=== PATIENT | male | born 1945 | race Caucasian/White ===

== ENCOUNTER 2022-01-03 04:57 | Emergency (ER) | payer MEDICARE, SELFPAY ==
[2022-01-03 05:06] VITALS: BP 183/88; PULSE 51; RESP 20; TEMP 36.6; O2SAT 98; BMI 29.5
--- NOTE | 2022-01-03 05:27 | CRLHL7_ITS ---
For Patients: As a result of the 21st Century Cures Act, medical imaging exams and procedure reports are released immediately into your electronic medical record. You may view this report before your referring provider. If you have questions, please contact your health care provider. INDICATION: Severe abdominal pain COMPARISON: None TECHNIQUE: CT examination of the abdomen and pelvis was performed following the uneventful intravenous administration of 112 cc of Isovue 370. Thin section axial images were obtained from the lung bases through the pubic symphysis. Oral contrast was not administered. Please note that all CT scans at this facility use dose modulation, iterative reconstruction, and/or weight-based dosing when appropriate to reduce radiation dose to as low as reasonably achievable. FINDINGS: LUNG BASES: The lung bases as visualized appear normal.The heart size is normal at the lung bases. Small hiatal hernia LIVER/BILIARY SYSTEM:The liver is normal in size and configuration. There is no focal mass and there is no intra- or extra hepatic biliary ductal dilatation.The gall bladder appears normal. Hepatic steatosis. ADRENALS: Normal KIDNEYS, URETERS and BLADDER:The kidneys are normal in size. There are no intrarenal calculi. Right hydro nephrosis and right hydroureter is noted. The pelvis is poorly evaluated due to dense streak artifact from right hip arthroplasty. However, a faint 2 millimeter calcification is noted on series 3, image 132 presumably within the distal right ureter about 1.5 centimeters from the ureterovesical junction. SPLEEN:There are granulomatous calcifications in the spleen. PANCREAS: Appears normal. RETROPERITONEUM and MESENTERY: There is no mass, adenopathy or aortic aneurysm. Atherosclerotic vascular calcifications GASTROINTESTINAL SYSTEM: There is no evidence of diverticulitis, colitis, mechanical obstruction, or appendicitis. The small bowel as visualized appears normal.Diverticulosis PELVIS: Poorly seen due to streak artifact from a right hip arthroplasty. Prostate is enlarged. OSSEOUS STRUCTURES and ABDOMINAL WALL: There is an age-appropriate appearance of the osseous structures.No significant abdominal wall defect. OTHER: No free fluid or free air. IMPRESSION: 1. Right hydronephrosis and right hydroureter. The distal right ureter is poorly seen due to streak artifact from right hip arthroplasty. However, there are findings suggesting a 2 millimeters stone in the distal right ureter about 1.5 centimeters from the ureterovesical junction. No intrarenal calculi. 2. Other incidental nonacute appearing findings as above. Please note that all CT scans at this facility use dose modulation, iterative reconstruction, and/or weight-based dosing when appropriate to reduce radiation dose to as low as reasonably achievable. Dictated by Jayden Griffith MD @ 01/03/2022 6:59:15 AM (Electronically Signed)
--- NOTE | 2022-01-03 05:30 | ED_ITS ---
HPI - Abdominal Pain General Chief Complaint: Abdominal Pain Stated Complaint: severe stomach pain Time Seen by Provider: 01/03/22 05:14 Source: patient and family Mode of arrival: ambulatory Limitations: no limitations History of Present Illness HPI narrative: 76-year-old man with remote history of a prior duodenal ulcer presents to the emergency department with severe onset abdominal pain at 10:00 p.m. which is approximately 7+ hours prior to arrival. Pain initially achy, dull and constant. Initially it was located in the periumbilical region per his description now it is in mostly the upper abdomen, radiating throughout the entire abdomen, not as focal. It is accompanied by nausea. Patient had a feeling that he could feel better if he vomited and had a few episodes of somewhat self induced retching but this did not improve his symptoms and he was not able to actually vomit. He has had about 3-4 bowel movements since the pain started all of which were formed and did not improve his symptoms. No blood in his stools. He has not had a recent endoscopy. Reports that he had 1 many years ago and was diagnosed with the ulcer he believes this was at [facility] any thinks was probably 40 years ago. He currently takes omeprazole and denies any complications with this. He believes his last screening colonoscopy was about a year ago and states that that would have been at our facility. Denies any s ignificant history of alcoholism or unusual ingestion. No trauma. No prior history of similar pain. He did not try any home interventions prior to coming to the emergency department as far as medications. Past medical history notable for prior stroke, depression, prior ulcer. Home medications are Plavix 75 mg once daily omeprazole 20 daily rosuvastatin 40 daily sertraline 100 daily. Denies any drug allergies. Socially, he reports that he is a nonsmoker, no heavy alcohol use. No pertinent travel. Family history reviewed from old EMR record and does not seem pertinent for GI cancers or gallbladder disease. Other than GI symptoms, ROS is negative times 12 systems. Related Data Home Medications Medication Instructions Recorded Confirmed clopidogrel 75 mg tablet 75 mg PO 11/16/21 12/21/21 omeprazole 20 mg capsule,delayed 20 mg PO 11/16/21 12/21/21 release rosuvastatin 40 mg tablet 40 mg PO 11/16/21 12/21/21 sertraline 100 mg tablet 100 mg PO 11/16/21 12/21/21 multivitamin 1 tab PO QAM 12/21/21 12/21/21 omega-3 fatty acids 1,000 mg 1,000 mg PO QDAY 12/21/21 12/21/21 capsule tadalafil 5 mg tablet 5 mg PO .As Needed PRN 12/21/21 12/21/21 Previous Rx's Medication Instructions Recorded ketorolac 10 mg tablet 10 mg PO TID PRN pain 5 days #15 01/03/22 tabs tamsulosin 0.4 mg capsule (Flomax) 0.4 mg PO DAILY #5 caps 01/03/22 Allergies Allergy/AdvReac Type Severity Reaction Status Date / Time No Known Drug Allergies Allergy Verified 12/21/21 10:32 [facility] Medical History History of duodenal ulcer (1979) History of embolic stroke (2017) Surgical History History of carotid endarterectomy (05/14/17) History of tonsillectomy History of total hip replacement (2016) Social History Smoking Status: Never smoker How often do you have a drink containing alcohol: monthly or less How many standard drinks containing alcohol do you have on a typical day: 1 or 2 AUDIT-C Alcohol total score: 1 Non-prescribed substance use: denies use Exam Const: Vital Signs, click to edit/add: Vital Signs - 24 hr 01/03/22 05:06 Temperature 97.9 F Pulse Rate [Left P ulse Oximeter] 51 L Respiratory Rate 20 Blood Pressure [Le ft Upper Arm] 183/88 H Pulse Oximetry 98 Oxygen Delivery Me thod Room Air Common normals: no apparent distress General appearance: cooperative and well kempt HENMT: Common normals: normocephalic Head and scalp: normocephalic Mouth: oral and palatal mucosa normal Throat: posterior oropharynx normal Eye: Common normals: conjunctivae normal and no scleral icterus General eye: normal appearance of both eyes Conjunctiva: conjunctiva(e) normal Neck & C-Spine: Common normals: full ROM and no lymphadenopathy Resp: Common normals: normal respiratory effort, no use of accessory muscles and clear to auscultation bilaterally Effort & inspection: able to speak in complete sentences Auscultation: clear to auscultation bilaterally Cardio: Common normals: regular rate, regular rhythm, S1 normal heart sound, S2 normal heart sound, no murmurs and peripheral pulses 2+ throughout Rate: regular rate Rhythm: regular rhythm Heart sounds: S1 normal and S2 normal Peripheral pulses: pulses 2+ throughout GI: Common normals: no hepatosplenomegaly and no masses Auscultation: normoactive bowel sounds Palpation: no hepatosplenomegaly Other: Diffusely tender throughout the abdomen but there does seem to be an element of guarding along the right mid abdomen. No mass. : Common normals: no CVA tenderness Bladder/kidney exam: no CVA tenderness Back & Pelvis: Common normals: no CVA tenderness Extremity: Common normals: normal to inspection, normal capillary refill and no pedal edema Neuro: Common normals: moves all extremities and no focal motor deficits Speech: speech normal Motor exam: no tremor noted and no movement abnormalities noted Psych: Appearance: well kempt Activity/motor behavior: appropriate eye contact Mood and affect: euthymic mood Memory/cognition: memory grossly intact Insight: insight good Judgement: judgment good Skin: Common normals: no rashes or lesions noted General skin exam: no rashes or lesions noted Course Vital Signs Vital signs: Initial Vital Signs Temperature 97.9 F 01/03/22 05:06 Temperature Source Temporal Artery Scan 01/03/22 05:06 Pulse Rate 51 L 01/03/22 05:06 Pulse Strength 0+ Absent 01/03/22 05:06 Respiratory Rate 20 01/03/22 05:06 Blood Pressure 183/88 H 01/03/22 05:06 Blood Pressure Mean 119 01/03/22 05:06 Blood Pressure Position Sitting 01/03/22 05:06 Pulse Oximetry 98 01/03/22 05:06 Oxygen Delivery Method 01/03/22 05:06 Vital Signs Temperature 97.9 F 01/03/22 05:06 Pulse Rate 51 L 01/03/22 05:06 Respiratory Rate 20 01/03/22 05:06 Blood Pressure 183/88 H 01/03/22 05:06 Pulse Oximetry 98 01/03/22 05:06 Oxygen Delivery Method 01/03/22 05:06 Temperature 97.9 F 01/03/22 05:06 Pulse Rate 51 L 01/03/22 05:06 Respiratory Rate 20 01/03/22 05:06 Blood Pressure 183/88 H 01/03/22 05:06 Pulse Oximetry 98 01/03/22 05:06 Oxygen Delivery Method 01/03/22 05:06 MDM - Abdominal Pain MDM Narrative Medical decision making narrative: Patient does seem to have findings consistent with some degree of peritonitis. Biggest suspicion is for duodenal ulcer due to prior history of ulcer and use of Plavix. Patient will have an IV placed. He will receive 4 mg of morphine, 4 of Zofran and 40 of Protonix. Blood work to look for any signs of gallbladder disease, pancreatitis, infection, inflammatory markers and cardiac disease. CT scan of the abdomen and pelvis recommended. Await findings. Update 7:00 a.m. laboratory studies showed very minimal elevation in liver enzymes, not be clinically significant. CRP normal, no significant leukocytosis. Kidney function electrolytes look great. No signs of cardiac disease. His CT scan per my interpretation is notable for right-sided hydronephrosis and hydroureter. Unfortunately do lose the ureter close to the bladder because of scatter affect from the right hip arthroplasty. But I do see a nearby calcification that looks 2-3 mm in size near the bladder which I suspect is a distal ureteral stone. The radiologist has the same interpretation. This combined with the fact that he has 2+ blood in his urine without any symptoms of infection is suspicious. Discussed the findings with patient and his . He has had kidney stones before and he thinks that this does sound consistent with what is going on. He vomited x1 in the ED and is now actually pain-free. Will be given a single dose of Flomax, 15 mg of IV Toradol and we discussed plan of care. Please see discharge instructions, all questions answered Differential Diagnosis Differential diagnosis: Likely abdominal pain (Duodenal ulcer), acute appendicitis, constipation, diverticulitis, gastroenteritis, pancreatitis and small bowel obstruction Lab Data Labs: Lab Results 01/03/22 01/03/22 01/03/22 Range/Units 05:27 05:27 05:27 WBC 9.58 (4.50-11.00) K/uL RBC 4.81 (4.30-5.90) m/uL Hgb 14.1 (13.5-17.5) gm/dL Hct 42.3 (37.0-53.0) % MCV 88 (80-100) fL MCH 29 (26-34) pg MCHC 33 (32-36) gm/dL RDW Coeff of Yudi 13.5 (11.5-15.5) % Plt Count 158 (140-440) K/uL Neut % (Auto) 87.3 H (42.0-72.0) % Lymph % (Auto) 10.0 L (20-44) % [place] % (Auto) 2.5 (0.0-11.0) % Eos % (Auto) 0.1 (0.0-7.0) % Baso % (Auto) 0.0 (0.0-3.0) % Neut # (Auto) 8.40 H (1.7-7.0) K/uL Lymph # (Auto) 1.00 (0.90-2.90) K/uL [place] # (Auto) 0.20 (0.00-0.90) K/UL Eos # (Auto) 0.01 (0.00-0.50) K/uL Baso # (Auto) 0.00 (0.00-0.30) K/uL Abs Immat Gran (auto) 0.01 (0.00-0.30) K/uL Imm/Tot Granulo (auto) 0.1 % Sodium 143 (135-149) mmol/L Potassium 4.3 (3.6-5.1) mmol/L Chloride 108 (96-114) mmol/L Carbon Dioxide 25 (20-32) mmol/L BUN 23 (7-30) mg/dL Creatinine 1.0 (0.5-1.5) mg/dL Estimated Creat Clear 74.21 Estimated GFR 78 ml/min Glucose 164 H (60-115) mg/dL Calcium 9.7 (8.4-10.6) mg/dL Total Bilirubin 0.6 (0.1-1.5) mg/dL AST 51 H (12-35) U/L ALT 74 H (4-50) U/L Alkaline Phosphatase 123 (40-150) U/L C-Reactive Protein 1.0 (0.5-1.0) mg/dL Total Protein 7.6 (6.0-8.3) g/dL Albumin 4.7 (3.3-5.0) g/dL Lipase 147 (23-300) U/L Urine Color (Yellow) Urine Appearance (Clear) Urine pH (5.0-8.5) Ur Specific [place] (1.000-1.030) Urine Protein (Negative) Urine Glucose (UA) (Negative) Urine Ketones (Negative) Urine Blood (Negative) Urine Nitrite (Negative) Urine Bilirubin (Negative) Urine Urobilinogen (0.2-1.0) Ur Leukocyte Esterase (Negative) Urine RBC (0-2) Urine WBC (0-5) Ur Squamous Epith Cells (None-Few) Urine Bacteria (None) POC Troponin I 0.00 L (0.01-0.04) ng/ml 01/03/22 Range/Units 06:11 WBC (4.50-11.00) K/uL RBC (4.30-5.90) m/uL Hgb (13.5-17.5) gm/dL Hct (37.0-53.0) % MCV (80-100) fL MCH (26-34) pg MCHC (32-36) gm/dL RDW Coeff of Yudi (11.5-15.5) % Plt Count (140-440) K/uL Neut % (Auto) (42.0-72.0) % Lymph % (Auto) (20-44) % [place] % (Auto) (0.0-11.0) % Eos % (Auto) (0.0-7.0) % Baso % (Auto) (0.0-3.0) % Neut # (Auto) (1.7-7.0) K/uL Lymph # (Auto) (0.90-2.90) K/uL [place] # (Auto) (0.00-0.90) K/UL Eos # (Auto) (0.00-0.50) K/uL Baso # (Auto) (0.00-0.30) K/uL Abs Immat Gran (auto) (0.00-0.30) K/uL Imm/Tot Granulo (auto) % Sodium (135-149) mmol/L Potassium (3.6-5.1) mmol/L Chloride (96-114) mmol/L Carbon Dioxide (20-32) mmol/L BUN (7-30) mg/dL Creatinine (0.5-1.5) mg/dL Estimated Creat Clear Estimated GFR ml/min Glucose (60-115) mg/dL Calcium (8.4-10.6) mg/dL Total Bilirubin (0.1-1.5) mg/dL AST (12-35) U/L ALT (4-50) U/L Alkaline Phosphatase (40-150) U/L C-Reactive Protein (0.5-1.0) mg/dL Total Protein (6.0-8.3) g/dL Albumin (3.3-5.0) g/dL Lipase (23-300) U/L Urine Color Yellow (Yellow) Urine Appearance Clear (Clear) Urine pH 7.0 (5.0-8.5) Ur Specific [place] 1.020 (1.000-1.030) Urine Protein Negative (Negative) Urine Glucose (UA) Negative (Negative) Urine Ketones Negative (Negative) Urine Blood 2+ A (Negative) Urine Nitrite Negative (Negative) Urine Bilirubin Negative (Negative) Urine Urobilinogen 0.2 (0.2-1.0) Ur Leukocyte Esterase Negative (Negative) Urine RBC 2-5 A (0-2) Urine WBC 0-2 (0-5) Ur Squamous Epith Cells Few (None-Few) Urine Bacteria None (None) POC Troponin I (0.01-0.04) ng/ml Discharge Plan Discharge Clinical Impression: Calculus of distal right ureter Patient Disposition: Home w/ Parent or Adult Condition: Improved Instructions: Ureteral Stones (ED) Additional Instructions: You have a 2 mm kidney stone near the end of the right ureter, near the emptying point into the bladder. This should pass without complication and is not likely to need any surgical intervention. There are no signs of infection associated with this. The remainder of your blood work and workup is normal. As we d iscussed, I would like to start you on a medication called Flomax for 5 days. This will help dilate open the ureter to allow the stone to pass more easily and will also help reduce that spasm pain. Your homework is to drink lots of fluids to help flush the stone through. I will give you prescription for some Toradol pills. This is a medication you can use for up to 5 days that will help with t hat spasm pain. It is also okay to use Tylenol. The stone tends to only hurt when it is moving, so it may come and go for a few days. It can take a few weeks for 1 this size to pass but it should not require any other intervention. As we discussed, he start running high fevers and have symptoms of infection, call your physician. If you have severe symptoms of infection, weakness, worry for systemic infection, come back to the emergency room. Activity Level: No Restrictions Discharge Diet: Regular Prescriptions: New tamsulosin [Flomax] 0.4 mg capsule 0.4 mg PO DAILY Qty: 5 0RF ketorolac 10 mg tablet 10 mg PO TID PRN (Reason: pain) 5 Days Qty: 15 0RF No Action rosuvastatin 40 mg tablet 40 mg PO omeprazole 20 mg capsule,delayed release(DR/EC) 20 mg PO clopidogrel 75 mg tablet 75 mg PO sertraline 100 mg tablet 100 mg PO multivitamin Tablet 1 tab PO QAM tadalafil 5 mg tablet 5 mg PO .As Needed PRN Rx Instructions: TAKE ONE TAB 30 MIN TO 36 HRS PRIOR TO INTERCOURSE omega-3 fatty acids 1,000 mg capsule 1,000 mg PO QDAY Follow Up/Referrals: Provider,Not a Local [Primary Care Provider] - Stand Alone Forms: Tiny Pictures Info Instructions
[2022-01-03 05:45] LABS: Eosinophils Absolute Auto 0.01 K/uL (0.00-0.50); Eosinophils Percent Auto 0.1 % (0.0-7.0); Hematocrit 42.3 % (37.0-53.0); Hemoglobin* 14.1 gm/dL (13.5-17.5); Immature Granulocytes Abs Auto 0.01 K/uL (0.00-0.30); Immature Granulocytes Pct Auto 0.1 %; Mean Corpuscular HGB Conc 33 gm/dL (32-36); Mean Corpuscular Hemoglobin 29 pg (26-34); Mean Corpuscular Volume 88 fL (80-100); Monocytes Percent Auto 2.5 % (0.0-11.0); Neutrophils Percent Auto 87.3 % (42.0-72.0); Platelet Count* 158 K/uL (140-440); RDW Coefficient of Variation % 13.5 % (11.5-15.5); Red Blood Count 4.81 m/uL (4.30-5.90); White Blood Count* 9.58 K/uL (4.50-11.00)
[2022-01-03] MEDS: MORPHINE 4 MG/ML INJ IVP (05:45)
[2022-01-03] MEDS: ONDANSETRON 2 MG/ML inj 4 MG IVP (05:45)
[2022-01-03] MEDS: PANTOPRAZOLE SODIUM 40 MG INJ IVP (05:45)
[2022-01-03 05:49] LABS: Slide Review Reflex No
[2022-01-03 06:00] LABS: Chloride* 108 mmol/L (96-114)
[2022-01-03 06:01] LABS: Albumin* 4.7 g/dL (3.3-5.0); Potassium* 4.3 mmol/L (3.6-5.1); Sodium* 143 mmol/L (135-149)
[2022-01-03 06:03] LABS: Est. Creatinine Clearance* 74.21; Estimated Glomerular Filt Rate 78 ml/min
[2022-01-03 06:04] LABS: Alanine Aminotransferase* 74 U/L (4-50); Alkaline Phosphatase* 123 U/L (40-150); Bilirubin Total* 0.6 mg/dL (0.1-1.5); Blood Urea Nitrogen* 23 mg/dL (7-30); Calcium* 9.7 mg/dL (8.4-10.6); Carbon Dioxide* 25 mmol/L (20-32); Glucose* 164 mg/dL (60-115); Lipase* 147 U/L (23-300); Total Protein* 7.6 g/dL (6.0-8.3)
[2022-01-03] MEDS: HYDROmorphone 0.5 mg/0.5 ml inj IVP (06:05)
[2022-01-03 06:21] LABS: Aspartate Amino Transferase* 51 U/L (12-35)
[2022-01-03 06:37] LABS: Appearance Urine Clear (Clear); Bilirubin Urine Negative (Negative); Blood Urine 2+ (Negative); Color Urine Yellow (Yellow); Glucose Urine Negative (Negative); Ketones Urine Negative (Negative); Leukocyte Esterase Urine Negative (Negative); Nitrite Urine Negative (Negative); Protein Urine Negative (Negative); Urobilinogen Urine 0.2 (0.2-1.0)
[2022-01-03 06:59] LABS: Squamous Epithelial Cell Urine Few (None-Few); WBC Urine 0-2 (0-5)
[2022-01-03 07:24] VITALS: BP 153/72; PULSE 66; RESP 16; TEMP 36.6; O2SAT 94
[2022-01-03] MEDS: KETOROLAC 15 MG/ML inj IVP (07:24)
[2022-01-03] MEDS: TAMSULOSIN HCL 0.4 MG CAPSULE PO (07:24)
== END 2022-01-03 07:38 | disposition home or self-care (01) ==
PROVIDERS: Emergency Provider Family Medicine
DX: N20.1 Calculus of ureter (principal)
CPT/HCPCS: 36415; 74177; 80053; 81003; 81015; 83690; 85025; 86140; 93005; 96374; 96375; 99283; 99284; 99285; A9270; C9113; J1170; J1885; J2270; J2405; Q9967

== ENCOUNTER 2023-07-05 09:40 | Outpatient (CLI) | payer MEDICARE, SELFPAY ==
--- OUTSIDE RECORDS SUMMARY | 2023-07-25 08:54 | XMS_ITS | Referral Summary ---
Author Organization [place] Address [address] [place], [place] [address]an[place]. [place] [address] Care Team Providers Care Warehouse Worker 2Nd Shift Name Role Phone Britt Yanes MD Primary Care Provider Allergies Active Allergy Reactions Criticality Noted Date Comments No Known Drug Allergy 09/23/2003 Medications Medication Sig Dispensed Refills Start Date End Date Status Sertraline HCl (ZOLOFT PO) Take 100 mg by mouth daily Active Clopidogrel Bisulfate (PLAVIX PO) Take 75 mg by mouth daily Active Rosuvastatin Calcium (CRESTOR PO) Take 20 mg by mouth daily Active [place] 3-6-9 Fatty Acids (OMEGA 3-6-9 COMPLEX PO) Take 1-2 capsules by mouth daily Active OMEPRAZOLE PO Take 20 mg by mouth daily Active Acetaminophen (TYLENOL PO) Take 1,000 mg by mouth daily as needed for mild pain or fever Active oxyCODONE IR (ROXICODONE) 5 MG tabletIndications: Status post right hip replacement Take 1-2 tablets (5-10 mg) by mouth every 4 hours as needed for moderate to severe pain 50 tablet 02/15/2017 Active senna-docusate (SENOKOT-S;PERICOL AL) 8.6-50 MG per tabletIndications: Status post right hip replacement Take 2 tablets by mouth 2 times daily as needed for constipation 60 tablet 02/15/2017 Active acetaminophen (TYLENOL) 500 MG tabletIndications: Status post right hip replacement Take 2 tablets (1,000 mg) by mouth every 6 hours as needed for pain 100 tablet 02/15/2017 Active Active Problems Problem Noted Date Diagnosed Date Status post right hip replacement 02/14/2017 Pain in limb 07/22/2006 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 Provider to review Social History Tobacco Use Types Packs/Day Years Used Date Smoking Tobacco: Never Smokeless Tobacco: Never Alcohol Use Standard Drinks/Week Comments Yes 0 (1 standard drink = 0.6 oz pur e alcohol) Occassionally Sex and Gender Information Value Date Recorded Sex Assigned at Not on file Gender Identity Not on file Sexual Orientation Not on file Last Filed Vital Signs Vital Sign Reading Time Taken Comments Blood Pressure 122/72 02/15/2017 12:10 PM TEENAGE PROGRAM DIRECTOR Pulse 74 08/15/2005 8:45 AM CDT Temperature 36.5 ??C (97.7 ??F) 02/15/2017 12:[address] Respiratory Rate 16 02/15/2017 12:29 PM TEENAGE PROGRAM DIRECTOR Oxygen Saturation 95% 02/15/2017 12:10 PM TEENAGE PROGRAM DIRECTOR Inhaled Oxygen Concentration - - Weight 102.1 kg (225 lb) 02/14/2017 7:49 AM TEENAGE PROGRAM DIRECTOR Height 188 cm (6' 2) 02/14/2017 7:49 AM TEENAGE PROGRAM DIRECTOR Body Mass Index 28.89 02/14/2017 7:49 AM TEENAGE PROGRAM DIRECTOR Plan of Treatment Not on file Medical Devices Implanted Type Area Director Of Parks And Recreation Device Identifier Shelf Expiration Date Model / Serial / Lot Imp [place] Hole Eliminator Hip Depuy Duraloc 1246-03-000 Implanted:Qty: 1 on 02/14/2017 by Jaspal Vieyra MD at [facility] Metallic Hardware/An chor Right: Hip [employer]- 11/17/2026 [id number] / / [id number] Imp Scr Depuy [place] Canc 6.5x15mm [id number] Implanted:Qty: 1 on 02/14/2017 by Jaspal Vieyra MD at [facility] Metallic Hardware/An chor Right: Hip [employer]- 11/17/2026 [id number] / / [id number] Imp Scr Bone Can Al 6.5x35mm [id number] Implanted:Qty: 1 on 02/14/2017 by Jaspal Vieyra MD at [facility] Metallic Hardware/An chor Right: Hip [employer]- 12/18/2026 [id number] / / [id number] Imp Scr Bone Can Al 6.5x25mm 1213-12-565 Implanted:Qty: 1 on 02/14/2017 by Jaspal Vieyra MD at [facility] Metallic Hardware/An chor Right: Hip [employer]- 10/18/2026 [id number] / / [id number] Imp Cup Al [place] 64mm 1217-22-268 Implanted:Qty: 1 on 02/14/2017 by Jaspal Vieyra MD at [facility] Total Joint Component/I nsert Right: Hip [employer]- 12/19/2023 [id number] / / [id number] Imp Stem Femoral Hip Depuy [place] 7 1570-11-135 Implanted:Qty: 1 on 02/14/2017 by Jaspal Vieyra MD at [facility] Total Joint Component/I nsert Right: Hip [employer]- 09/17/2025 [id number] / / [id number] Imp Head Femoral Depuy Ceramic 36mm +5mm [id number] Implanted:Qty: 1 on 02/14/2017 by Jaspal Vieyra MD at [facility] Total Joint Component/I nsert Right: Hip [employer]- 12/18/2021 1365-36-320 / / [id number] [place] Atrx Polyethylene Acetabular Liner +4 Neutral 36mm Id 64mm Od Implanted:Qty: 1 on 02/14/2017 by Jaspal Vieyra MD at [facility] Right: Hip DEPUY MITEK 11/17/2021 [id number] / / [id number] Advance Directives For more information, please contact: [phone] * Full Code (Latest Code Status on File) Date Activated Date Inactivated Comments 02/15/2017 9:08 AM * Full Code Date Activated Date Inactivated Comments 02/14/2017 4:19 PM 02/15/2017 9:08 AM Care Teams Warehouse Worker 2Nd Shift Relationship Specialty Start Date End Date Britt Yanes MD [facility] [address] [place] [address] PCP - General Internal Medicine 01/25/17
--- OUTSIDE RECORDS SUMMARY | 2023-07-25 08:54 | XMS_ITS | Clinical Summary ---
Author Organization [facility] Address [place], [place] [address] Care Team Providers Care Coating Line Worker Name Role Phone Britt Yanes MD Primary Care Provider [phone] Stephen Alfonso MD Unavailable [phone]- [phone] Allergies No known active allergies Medications Medication Sig Dispensed Refills Start Date End Date Status sertraline HCl (SERTRALINE ORAL) Take 100 mg by mouth. Active rosuvastatin calcium (CRESTOR ORAL) Take 20 mg by mouth. Active clopidogrel bisulfate (PLAVIX ORAL) Take 75 mg by mouth once daily. Active aspirin enteric coated (ECOTRIN) 325 mg tablet Take 81 mg by mouth once daily with a meal. Active omega 6-waw-ael-fish oil (Fish Oil) 100-160-1,000 mg cap Take 1 Capsule by mouth once daily. Active omeprazole (PriLOSEC OTC) 20 mg tablet Take 20 mg by mouth once daily. 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 Presbyopia 07/09/2006 Hypermetropia 07/09/2006 BLEPHARITIS, CHRONIC 03/29/2004 Family History Medical History Relation Name Comments Genetic Other Diabetes-Dad, B rother Relation Name Status Comments Other Social History Tobacco Use Types Packs/Day Years Used Date Smoking Tobacco: Never Smokeless Tobacco: Never Alcohol Use Standard Drinks/Week Comments Yes 0 (1 standard drink = 0.6 oz pur e alcohol) social Sex and Gender Information Value Date Recorded Sex Assigned at Not on file Gender Identity Not on file Sexual Orientation Not on file Obstetrics History Last Filed Vital Signs Vital Sign Reading Time Taken Comments Blood Pressure 140/77 07/29/2020 3:10 PM CDT Pulse 60 07/29/2020 3:10 PM CDT Temperature 36.4 ??C (97.6 ??F) 07/29/2020 2:09 PM CD T Respiratory Rate 18 07/29/2020 3:10 PM CDT Oxygen Saturation 97% 07/29/2020 3:10 PM CDT Inhaled Oxygen Concentration - - Weight 102.9 kg (226 lb 12.8 oz) 2020 12:12 PM CDT Height 188 cm (6' 2.02) 07/27/2020 6:38 AM CDT Body Mass Index 29.11 07/27/2020 6:38 AM CDT Plan of Treatment Health Maintenance Due Date Last Done Comments Tdap 1957 Depression screening for age 12+ 1958 Hepatitis C screening for age 18-79 1964 Tetanus booster 1966 Zoster (shingles) series for age 50+ (1 of 2) 03/05/18 97 Medicare Wellness for age 65+ 2011 Pneumococcal series for age 65+ (1 of 1 - PCV) 012 BMI (ht and wt on same day) for age 18+ 07/27/2021 0 07/27/2020 COVID-19 vaccine series ( - 2022-24 season) 3 Influenza for age 65+ 10/20/2023 Advance Directives * Full Code (Latest Code Status on File) Date Activated Date Inactivated Comments 07/29/2020 12:17 PM 07/31/2020 2:14 AM Question Answer Comments Code Status Discussion: Not Discussed * Full Code Date Activated Date Inactivated Comments 05/15/2019 7:10 AM 05/15/2019 12:47 PM Care Teams Coating Line Worker Relationship Specialty Start Date End Date Britt Yanes MD [address] [place] [address] PCP - General Internal Medicine 03/21/17 Stephen Alfonso MD [address] [place] [address] 03/21/17
--- OUTSIDE RECORDS SUMMARY | 2023-07-25 08:54 | XMS_ITS | Encounter Summary ---
Author Organization [place] Address [address] [place] [address] [place] [address] Care Team Providers Care Deputy Sheriff Generalist Name Role Phone Britt Yanes MD Primary Care Provider Encounter Details Date Type Department Care Team (Late st Contact Info) Description 01/30/2017 Orders Only [facility] [address] [place] [address] Jaspal Vieyra MD [facility] [address] [place] [address] [place] [address] Pre-operative laboratory examination (Primary Dx) Social History Tobacco Use Types Packs/Day Years Used Date Smoking Tobacco: Never Alcohol Use Standard Drinks/Week Comments Yes 0 (1 standard drink = 0.6 oz pur e alcohol) Occassionally Sex and Gender Information Value Date Recorded Sex Assigned at Not on file Gender Identity Not on file Sexual Orientation Not on file documented as of this encounter Plan of Treatment Not on file documented as of this encounter Results * Methicillin Resistant Staph Aureus PCR (01/31/2017 12:30 PM ZANJERO) Specimen Description Nares 01/31/2017 12:50 PM [facility]JERO [facility] Methicillin Resist/Sens S. aureus PCR Negative NEG^Negat gustavo 01/31/2017 5:48 PM ZANJERO [facility] Comment: MRSA Negative: SA Negative ??MRSA and Staphylococcus aureus target DNA not detected, presumed negative for MRSA and SA colonization or the number of bacteria present may be below the limit of detection for the assay. FDA approved assay performed using [employer] GeneXpert(R) real-time PCR. Nasal structure (body structure) 01/31/2017 12:30 PM ZANJERO 01/31/2017 12:54 PM Z[facility]JERO Jaspal Vieyra MD LAB - MICRO GENERAL ORDERABLES [facility] [address] [place], [place] [id number] [place] [address] [address] [place], [place] [id number] [place] [address] documented in this encounter Visit Diagnoses Diagnosis Pre-operative laboratory examination- Primary Pre-procedural laboratory examination documented in this encounter Care Teams Deputy Sheriff Generalist Relationship Specialty Start Date End Date Britt Yanes MD [address] [address] PCP - General Internal Medicine 01/25/17 documented as of this encounter
--- OUTSIDE RECORDS SUMMARY | 2023-07-25 08:54 | XMS_ITS | Clinical Summary ---
Author Organization [place] Address [address] [place], [place] [address]. [place] [address] Care Team Providers Care Slip Caster Name Role Phone Britt Yanes MD Primary Care Provider [phone] Allergies Active Allergy Reactions Criticality Noted Date Comments No Known Drug Allergy 09/23/2003 Medications Medication Sig Dispensed Refills Start Date End Date Status Sertraline HCl (ZOLOFT PO) Take 100 mg by mouth daily Active Clopidogrel Bisulfate (PLAVIX PO) Take 75 mg by mouth daily Active Rosuvastatin Calcium (CRESTOR PO) Take 20 mg by mouth daily Active [place] 3-6-9 Fatty Acids (OMEGA 3-6-9 COMPLEX PO) [...] updated by automated process. Provider to review Family History Medical History Relation Comments Cardiovascular Brother 2 Heart Disease Diabetes Brother 3 Lipids Brother 4 Cardiovascular Father Heart Disease Diabetes Father Gastrointestinal Disease Father Ulcers Lipids Father Relation Status Comments Brother 1 (Age 57) Heart Attack Brother 2 Brother 3 Brother 4 Father (Age 82) Diabetes, Hear t Social History Tobacco Use Types Packs/Day Years [...] Comments Blood Pressure 122/72 02/15/2017 12:10 PM PROFILER OPERATOR Pulse 74 08/15/2005 8:45 AM CDT Temperature 36.5 ??C (97.7 ??F) 02/15/2017 12:[address] Respiratory Rate 16 02/15/2017 12:29 PM PROFILER OPERATOR Oxygen Saturation 95% 02/15/2017 12:10 PM PROFILER OPERATOR Inhaled Oxygen Concentration - - Weight 102.1 kg (225 lb) 02/14/2017 7:49 AM PROFILER OPERATOR Height 188 cm (6' 2) 02/14/2017 7:49 AM PROFILER OPERATOR Body Mass Index 28.89 02/14/2017 7:49 AM PROFILER OPERATOR Plan of Treatment Not on file Medical Devices Implanted Type Area Lead Sales Consultant Device Identifier Shelf Expiration Date Model / Serial / Lot Imp [place] Hole Eliminator Hip Depuy Duraloc 1246-03-000 Implanted:Qty: 1 on 02/14/2017 by Jaspal Vieyra MD at [facility] Metallic Hardware/An chor Right: Hip [employer]- 11/17/2026 [id number] / / [id number] Imp Scr Depuy [place] Canc 6.5x15mm 1217-15-500 Implanted:Qty: 1 on 02/14/2017 by Jaspal Vieyra MD at [facility] Metallic Hardware/An chor Right: Hip [employer]- 11/17/2026 [id number] / / [id number] Imp Scr Bone Can Al 6.5x35mm [id number] Implanted:Qty: 1 on 02/14/2017 by Jaspal Vieyra MD at [facility] Metallic Hardware/An chor Right: Hip [employer]- 12/18/2026 [id number] / / [id number] Imp Scr Bone Can Al 6.5x25mm 1217-25-500 Implanted:Qty: 1 on 02/14/2017 by Jaspal Vieyra MD at [facility] Metallic Hardware/An chor Right: Hip [employer]- 10/18/2026 [id number] / / [id number] Imp Cup Al [place] 64mm [id number] Implanted:Qty: 1 on 02/14/2017 by Jaspal Vieyra MD at [facility] Total Joint Component/I nsert Right: Hip [employer]- 12/19/2023 [id number] / / [id number] Imp Stem Femoral Hip Depuy [place] 7 1570-11-135 Implanted:Qty: 1 on 02/14/2017 by Jaspal Vieyra MD at [facility] Total Joint Component/I nsert Right: Hip [employer]- 09/17/2025 [id number] / / [id number] Imp Head Femoral Depuy [place] 36mm +5mm [id number] Implanted:Qty: 1 on 02/14/2017 by Jaspal Vieyra MD at [facility] Total Joint Component/I nsert Right: Hip [employer]- 12/18/2021 1365-36-320 / / [id number] [place] Atrx Polyethylene Acetabular Liner +4 Neutral 36mm Id 64mm Od Implanted:Qty: 1 on 02/14/2017 by Jaspal Vieyra MD at [facility] Right: Hip DEPUY MITEK 11/17/2021 1221-36-464 / / [id number] Advance Directives For more information, please contact: [phone] * Full Code (Latest Code Status on File) Date Activated Date Inactivated Comments 02/15/2017 9:08 AM * Full Code Date Activated Date Inactivated Comments 02/14/2017 4:19 PM 02/15/2017 9:08 AM Care Teams Slip Caster Relationship Specialty Start Date End Date Britt Yanes MD [facility] [address] [place] [address] PCP - General Internal Medicine 01/25/17
== END 2023-07-05 09:41 | disposition home or self-care (01) ==
LOC: NFLDREF 07-25 08:52
PROVIDERS: Visit Provider Internal Medicine
DX: Z00.00 Encounter for general adult medical examination without abnormal findings (principal); E78.5 Hyperlipidemia, unspecified
CPT/HCPCS: 80061

== ENCOUNTER 2024-06-01 10:01 | Outpatient (CLI) | payer MEDICARE, SELFPAY | END 2024-06-01 10:02 | disposition home or self-care (01) | PROVIDERS: PCP Internal Medicine; Visit Provider Internal Medicine | DX: E78.5 Hyperlipidemia, unspecified (principal); R53.83 Other fatigue; Z13.29 Encounter for screening for other suspected endocrine disorder | CPT/HCPCS: 80053; 80061; 84443 ==

== ENCOUNTER 2024-09-03 20:24 | Observation (INO) | payer MEDICARE, SELFPAY ==
--- OUTSIDE RECORDS SUMMARY | 2008-02-10 08:59 | XMS_ITS | Continuity of Care Document ---
Author Organization [facility] Address [address] [address] [place] [address] Phone Care Team Providers Care Call Or Contact Centre Operator Name Role Phone Unavailable Unavailable Unavailable Allergies, Adverse Reactions, Alerts Substance Reaction Status Criticality No Known allergies Medications Medication Instructions Dosage Effective Dates (start - stop) Status Comments Fish Oil 500 mg Cap, Delayed Release Take one capsule by mouth daily - Active Enteric Coated Aspirin 81 mg Tab, Delayed Release Take one tablet by mouth daily - Active Vitamin C unknown Take one tablet by mouth daily - Active ONE DAILY (unknown strength) every day Not Available - Active Lipitor 20 mg Tab Take 1 tablet by mouth daily - Active omeprazole 20 mg Cap, Delayed Release Take one tablet by mouth daily - Active Procedures Procedure Date Colonoscopy Flex; Dx (sep Pro) 08 Ugi Endo; W/bx 1/mx Level Iv-surg Path Gross/micro 08 Advance Directives Directive Yes / No Effective Date File Name No Information Encounters Encounter Description Practice Location Reason(s) For Visit Diagnoses Date Provider Providers Copied on Encounter [facility], [address] [address], [place], [id number], tel:[phone] Preethi [facility] Hiatal HerniaEsoph Stricture/tanvi atzki RingGastritis W/o BleedColon Cancer ScreeningGast ritis W/o BleedStomach Function Dis NosDiverticul osis Of Colon 200 8 No Information Referring Provider: Helga tobias MD [place], [address] [address], [place], [address]. tel:[phone] Family History Family Member Type Diagnosis Age At Onset No Information Payers Payer name Insurance type Covered green party ID Authorrylie meza(s) [id number] Social History Type Description Quantity Date Captured Comments Sex Male Smoking Status No Information Chief Complaint And Reason For Visit No Information Reason For Referral Reason For Referral No Information History Of Present Illness Encounter Date Complaint History Of Prese nt Illness No Information Functional Status Date Functional Assessmen t No Information Instructions Date Instruction Additional Infor mation No Information Assessments Type Assessment Date No Information Patient Care Teams Name Effective Dates (start - stop) Status Members No Information
--- OUTSIDE RECORDS SUMMARY | 2008-02-10 08:59 | XMS_ITS | Continuity of Care Document ---
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 tel:[phone] Family History Family Member Type Diagnosis Age At Onset No Information Payers Payer name Insurance type Covered democrat ID Authorrylie meza(s) [id number] Social History Type Description Quantity Date Captured [...]
[2024-09-03] VITALS (8 sets, daily range): BP systolic 117–166; BP diastolic 59–97; PULSE 60–68; RESP 13–18; TEMP 36.6–37.1; O2SAT 94–98; BMI 28.9
--- OUTSIDE RECORDS SUMMARY | 2024-09-03 20:26 | XMS_ITS | Clinical Summary ---
Author Organization [facility] Address [address] [place] [address] Care Team Providers Care Middleware Systems Architect Name Role Phone Britt Yanes MD Primary Care Provider [phone]- [phone] Stephen Alfonso MD Unavailable [phone]- [phone] Allergies No known active allergies Medications sertraline HCl (SERTRALINE ORAL) Take 100 mg by mouth. Active rosuvastatin calcium (CRESTOR ORAL) Take 20 mg by mouth. Active clopidogrel bisulfate (PLAVIX ORAL) Take 75 mg by mouth once daily. Active aspirin enteric coated (ECOTRIN) 325 mg tablet Take 81 mg by mouth once daily with a meal. Active omega 2-ict-cqd-fish oil (Fish Oil) 100-160-1,000 mg cap Take [...] Recorded Sex Assigned at Not on file Legal Sex Male 5:24 AM SYSTEM ADMINISTRATOR Gender Identity Not on file Sexual Orientation Not on file Obstetrics History Last Filed Vital Signs Vital Sign Reading Time Taken Comments Blood Pressure 140/77 07/29/2020 3:10 PM CDT Pulse 60 07/29/2020 3:10 PM CDT Temperature 36.4 C (97.6 F) 07/29/2020 2:09 PM CDT Respiratory Rate 18 07/29/2020 3:10 PM CDT Oxygen Saturation 97% 07/29/2020 3:10 PM CDT Inhaled Oxygen Concentration - - Weight 102.9 kg (226 lb 12.8 oz) 2020 12:12 PM CDT Height 188 cm (6' 2.02) 07/27/2020 6:38 AM CDT Body Mass Index 29.11 07/27/2020 6:38 AM CDT Plan of Treatment Health Maintenance Due Date Last Done Comments Tetanus booster 1957 Depression screening for age 12+ 1958 Hepatitis C screening for ag e 18-79 1964 Pneumococcal series for age 50+ (1 of 1 - PCV) 1996 Zoster (shingles) series for age 50+ (1 of 2) 1996 Medicare Wellness for age 65+ 2011 RSV vaccine for adults or (1 - 1-dose 75+ series) 2021 BMI (ht and wt on same day) for age 18+ 07/27/2021 07/27/2020 COVID-19 vaccine series ( - season) 2023 Influenza Vaccine (#1) 2024 Hepatitis B series for 19+ Aged Out N o longer eligible based on patient's age to complete this topic Insurance MEDICARE PART A HB ONLY [facility] Advance Directives * Full Code (Latest Code Status on File) Date Activated Date Inactivated Comments 07/29/2020 12:17 PM 07/31/2020 2:14 AM Question Answer Comments Code Status Discussion: Not Discussed * Full Code Date Activated Date Inactivated Comments 05/15/2019 7:10 AM 05/15/2019 12:47 PM Care Teams Middleware Systems Architect Relationship Specialty Start Date End Date Britt Yanes MD [address] [place] [address] PCP - General Internal Medicine 03/21/17 Stephen Alfonso MD [address] [place] [address] 03/21/17
--- OUTSIDE RECORDS SUMMARY | 2024-09-03 20:26 | XMS_ITS | Clinical Summary ---
Author Organization [facility] Address [address] [place] [address] [place] [address] Care Team Providers Care Core Sucker Name Role Phone Britt Yanes MD Primary Care Provider Allergies Active Allergy Reactions Criticality Noted Date Comments No Known Drug Allergy 09/23/2003 Medications Sertraline HCl (ZOLOFT PO) Take 100 mg by mouth daily Active Clopidogrel Bisulfate (PLAVIX PO) Take 75 mg by mouth daily Active Rosuvastatin Calcium (CRESTOR PO) Take 20 mg by mouth daily Active [place] 3-6-9 Fatty Acids (OMEGA 3-6-9 COMPLEX PO) Take 1-2 capsules by mouth daily Active OMEPRAZOLE PO Take 20 mg by mouth daily Active Acetaminophen (TYLENOL PO) Take 1,000 mg by mouth daily as needed for mild pain or fever Active oxyCODONE IR (ROXICODONE) 5 MG tabletIndicatio ns:Status post right hip replacement Take 1-2 tablets (5-10 mg) by mouth every 4 hours as needed for moderate to severe pain 50 tablet 7 Active senna-docusate (SENOKOT-S;SUMAN COLACE) 8.6-50 MG per tabletIndicatio ns:Status post right hip replacement Take 2 tablets by mouth 2 times daily as needed for constipation 60 tablet 7 Active acetaminophen (TYLENOL) 500 MG tabletIndicatio ns:Status post right hip replacement Take 2 tablets (1,000 mg) by mouth every 6 hours as needed for pain 100 tablet 7 Active Active Problems Problem Noted Date Diagnosed Date Status post right hip replacement 02/14/2017 Pain in limb 07/22/2006 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 [...] at Not on file Legal Sex Male 3:09 AM SERVICE DESK TECHNICIAN Gender Identity Not on file Sexual Orientation Not on file Last Filed Vital Signs Vital Sign Reading Time Taken Comments Blood Pressure 122/72 02/15/2017 12:10 PM SERVICE DESK TECHNICIAN Pulse 74 08/15/2005 8:45 AM CDT Temperature 36.5 C (97.7 F) 02/15/2017 12:10 PM SERVICE DESK TECHNICIAN Respiratory Rate 16 02/15/2017 12:29 PM SERVICE DESK TECHNICIAN Oxygen Saturation 95% 02/15/2017 12:10 PM SERVICE DESK TECHNICIAN Inhaled Oxygen Concentration - - Weight 102.1 kg (225 lb) 02/14/2017 7:49 AM SERVICE DESK TECHNICIAN Height 188 cm (6' 2) 02/14/2017 7:49 AM SERVICE DESK TECHNICIAN Body Mass Index 28.89 02/14/2017 7:49 AM SERVICE DESK TECHNICIAN Plan of Treatment Not on file Medical Devices Implanted Type Area Cabinet Worker Device Identifier Shelf Expiration Date Model / Serial / Lot Imp [place] Hole Eliminator Hip Depuy Duraloc 1246-03-000 Implanted:Qty: 1 on 02/14/2017 by Jaspal Vieyra MD at [facility] Metallic Hardware/An chor Right: Hip [employer]- 11/17/2026 [id number] / / [id number] Imp Scr Depuy [place] Canc 6.5x15mm 1217-15-500 Implanted:Qty: 1 on 02/14/2017 by Jaspal Vieyra MD at [facility] Metallic Hardware/An chor Right: Hip [employer]- 11/17/2026 [id number] / / [id number] Imp Scr Bone Can Al 6.5x35mm [id number] Implanted:Qty: 1 on 02/14/2017 by Jaspal Vieyra MD at [facility] Metallic Hardware/An chor Right: Hip [employer]- 12/18/2026 [id number] / / [id number] Imp Scr Bone Can Al 6.5x25mm [id number] Implanted:Qty: 1 on 02/14/2017 by Jaspal Vieyra MD at [facility] Metallic Hardware/An chor Right: Hip [employer]- 10/18/2026 [id number] / / [id number] Imp Cup Al [place] 64mm 1216-22-184 Implanted:Qty: 1 on 02/14/2017 by Jaspal Vieyra MD at [facility] Total Joint Component/I nsert Right: Hip [employer]- 12/19/2023 [id number] / / [id number] Imp Stem Femoral Hip Depuy [place] 7 1570-11-135 Implanted:Qty: 1 on 02/14/2017 by Jaspal Vieyra MD at [facility] Total Joint Component/I nsert Right: Hip [employer]- 09/17/2025 [id number] / / [id number] Imp Head Femoral Depuy Ceramic 36mm +5mm [id number] Implanted:Qty: 1 on 02/14/2017 by Jaspal Vieyra MD at [facility] Total Joint Component/I nsert Right: Hip [employer]- 12/18/2021 1365-36-320 / / [id number] [place] Atrx Polyethylene Acetabular Liner +4 Neutral 36mm Id 64mm Od Implanted:Qty: 1 on 02/14/2017 by Jaspal Vieyra MD at [facility] Right: Hip DEPUY MITEK 11/17/2021 1221-36-464 / / [id number] Insurance MEDICARE [employer] Advance Directives For more information, please contact: [phone] * Full Code (Latest Code Status on File) Date Activated Date Inactivated Comments 02/15/2017 9:08 AM * Full Code Date Activated Date Inactivated Comments 02/14/2017 4:19 PM 02/15/2017 9:08 AM Care Teams Core Sucker Relationship Specialty Start Date End Date Britt Yanes MD [facility] [address] [place] [address] PCP - General Internal Medicine 01/25/17
--- OUTSIDE RECORDS SUMMARY | 2024-09-03 20:26 | XMS_ITS | Encounter Summary ---
Author Organization [facility] Address [address] [place] [address] [place] [address] Care Team Providers Care Dot Etcher Name Role Phone Britt Yanes MD Primary Care Provider [phone] Encounter Details Date Type Department Care Team (Late st Contact Info) Description 01/30/2017 Orders Only [facility] [address] [place] [address] Jaspal Vieyra MD [facility] [address] [place] [address] Pre-operative laboratory examination (Primary Dx) Social History Tobacco Use Types Packs/Day Years Used Date Smoking Tobacco: Never Alcohol Use Standard Drinks/Week Comments Yes 0 (1 standard drink = 0.6 oz pur e alcohol) Occassionally Sex and Gender Information Value Date Recorded Sex Assigned at Not on file Legal Sex Male 3:09 AM [employer]PUTER SYSTEM[employer] SOFTWARE ENGINE[employer] Gender Identity Not on file Sexual Orientation Not on file documented as of this encounter Plan of Treatment Not on file documented as of this encounter Results * Methicillin Resistant Staph Aureus PCR (01/31/2017 12:30 PM COMPUTER SYSTEMS SOFTWARE ENGINEER) Specimen Description Nares 01/31/2017 12:50 PM COMPUTER SYSTEMS SOFTWARE ENGINEER [facility] Methicillin Resist/Sens S. aureus PCR Negative NEG^Negat gustavo 01/31/2017 5:48 PM COMPUTER SYSTEMS SOFTWARE ENGINEER [facility] Comment: MRSA Negative: SA Negative MRSA and Staphylococcus aureus target DNA not detected, presumed negative for MRSA and SA colonization or the number of bacteria present may be below the limit of detection for the assay. FDA approved assay performed using [employer] GeneXpert(R) real-time PCR. Nasal structure (body structure) 01/31/2017 12:30 PM COMPUTER SYSTEMS SOFTWARE ENGINEER 01/31/2017 12:54 PM COMPUTER SYSTEMS SOFTWARE ENGINEER us Jaspal Vieyra MD LAB - MICRO GENERAL ORDERABLE S Final Result [facility] [address] [place] [address], [facility] [address] [place] [address], [facility] [phone] documented in this encounter Visit Diagnoses Diagnosis Pre-operative laboratory examination- Primary Pre-procedural laboratory examination documented in this encounter Care Teams Dot Etcher Relationship Specialty Start Date End Date Britt Yanes MD [facility] - [address] [address] PCP - General Internal Medicine 01/25/17 documented as of this encounter
--- NOTE | 2024-09-03 20:35 | CRLHL7_ITS ---
For Patients: As a result of the Century Cures Act, medical imaging exams and procedure reports are released immediately into your electronic medical record. You may view this report before your referring provider. If you have questions, please contact your health care provider. INDICATION: Severe headache. TECHNIQUE: CT head without contrast. COMPARISON: June 08, 2020. FINDINGS: CSF spaces: Mild diffuse parenchymal volume loss. Brain parenchyma and extra-axial spaces: Moderate chronic white matter ischemic disease with chronic left frontoparietal infarction. The siddiqui-white differentiation is normal. No sign of mass, hemorrhage, or midline shift. No extra-axial fluid collection. Skull base and calvarium: Mild right maxillary sinus mucoperiosteal thickening. Otherwise, the visualized paranasal sinuses and mastoid air cells demonstrate no acute or significant findings. The visualized orbits are grossly unremarkable. No skull fractures. IMPRESSION: No acute intracranial abnormality on this noncontrast study. Moderate chronic white matter ischemic disease with chronic left frontoparietal infarction. Please note that all CT scans at this facility use dose modulation, iterative reconstruction, and/or weight-based dosing when appropriate to reduce radiation dose to as low as reasonably achievable. Dictated by Stephen Hull MD @ 09/03/2024 9:11:10 PM (Electronically Signed)
--- NOTE | 2024-09-03 21:05 | ED_ITS ---
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 He presents to the ER today with his for concern of numbness affecting his right hand and right arm. He presented to the ER tonight with concerned that he has intermittent numbness in his right hand and arm for the past week or so. It is not painful. It is not really weaker than normal or more clumsy but sometimes it goes completely numb and sometimes it feels like pins and needles. He notes that it tends to feel more numb when he holds it up in the ER but sometimes gets numb and pins and needles even with resting by side. He is not really noticing any weakness. It is not painful. It has not been swollen or turning colors. No left arm numbness. He does have chronic bilateral lower leg and foot numbness (apparently has neuropathy) but that is not changed from normal. Today also has a headache. Has no known injury. No associated neck pain. No back pain. He is concerned because this feels reminiscent of when he had a stroke several years ago. He says he thinks he had a stroke about 4 5 years ago, but according to his medical record it was actually 8 years ago in 2017. He has also had a carotid endarterectomy because of stroke, done at [facility]. Per medical record had PCP visit with Dr. Yanes in December 2021. According to that note History of embolic stroke Multiple small vessel strokes seen on MRI 05/04, done for subjective memory complaints, simvastatin intensified to crestor 05/04, Plavix started (changed from aspirin) 10/04, had acute on chronic stroke 03/07 Stenosis of carotid artery esolved, due to carotid endarectomy: 50% left sided stenosis seen on MRA, done 03/07 when he had acute on chronic infarcts seen L cerebral hemisphere, s/p left sided carotid endarterectomy at [facility] 05/05 Peripheral neuropathy (Acute) G62.9 Feet, especially right, 06/02/20, and visit 01/09 Obstructive sleep apnea Mild cognitive impairment Gait disorder Major depressive disorder Hyperlipidemia Erectile dysfunction Colon polyps According to PCP visit note from May 2024, he is still on Plavix and rosuvastatin but no longer on aspirin (not sure why). Related Data Home Medications ?Medication ?Instructions ?Recorded ?Confirmed multivitamin 1 tab PO QAM 12/21/21 omega-3 fatty acids 1,000 mg 1,000 mg PO QDAY 12/21/21 06/01/24 capsule Previous Rx's ?Medication ?Instructions ?Recorded clopidogrel 75 mg tablet 75 mg PO QDAY #90 tabs 06/01 omeprazole 20 mg capsule,delayed 20 mg PO QDAY #90 cap s 06/01/24 release rosuvastatin 40 mg tablet 40 mg PO QDAY #90 tabs 06/01 sertraline 100 mg tablet 100 mg PO QDAY #90 tabs 05/19 06/12 Allergies Allergy/AdvReac Type Severity Reaction Status Date / Time No Known Drug Allergies Allergy Verified 09/03/24 22:25 [facility] Medical History (Updated 09/04/24 @ 00:20 by Adelso Flood MD) History of duodenal ulcer (1979) ?Z87.19 - Personal history of other diseases of the digestive system (ICD-10) Stenosis of carotid artery ?I65.29 - Occlusion and stenosis of unspecified carotid artery (ICD-10) Surgical History (Updated 05/07/22 @ 08:29 by Britt Yanes MD) History of cataract surgery ?Z98.49 - Cataract extraction status, unspecified eye (ICD-10) History of total hip replacement (2016) ?Z96.649 - Presence of unspecified artificial hip joint (ICD-10) History of tonsillectomy ?Z90.89 - Acquired absence of other organs (ICD-10) History of carotid endarterectomy (05/14/17) ?Z98.890 - Other specified postprocedural states (ICD-10) Carpal tunnel syndrome of right wrist (01/07/19) ?G56.01 - Carpal tunnel syndrome, right upper limb (ICD-10) Social History (Updated 06/01/24 @ 14:48 by Zina Osman [facility]) What is your current living situation?: I presently have a place to live Problems where you live: no known problems In the past 12 months, utilities in danger of being shut off: no In past 12 months, lack of transportation kept you from medical appts, meetings, work, or getting things needed for daily living: no In the past 12 mos, have been you worried that your food would run out before you had money to buy more?: never true In the past 12 mos, the food you bought just didn't last and you didn't have money to buy more?: never true Smoking Status: Never smoker How often do you have a drink containing alcohol: monthly or less How many standard drinks containing alcohol do you have on a typical day: 1 or 2 AUDIT-C Alcohol total score: 1 Non-prescribed substance use: denies use How often does anyone, including family, friends and others, physically hurt you : never How often does anyone, including family, friends and others, insult or talk down to you: never How often does anyone, including family, friends and others, threaten you with harm: never How often does anyone, including family, friends and others, scream or curse at you: never Exam Narrative: Exam Narrative: Constitutional: Appears well-developed and well-nourished. Alert. Conversant. Non toxic. HENT: Head: Atraumatic. Nose: Nose normal. Mouth/Throat: Oral mucosa is clear and moist. no trismus. Pharynx normal. Tonsils symmetric. No tonsillar enlargement, erythema, or exudate. Eyes: Conjunctivae normal. EOM normal. Pupils equal, round, and reactive to light. No scleral icterus. Neck: Normal range of motion. Neck supple. No tracheal deviation present. Cardiovascular: Normal rate, regular rhythm. No gallop. No friction rub. No m urmur heard. Symmetric radial artery pulses Pulmonary/Chest: Effort normal. No stridor. No respiratory distress. No wheezes. No rales. No rhonchi . No tenderness. Abdominal: Soft. Bowel sounds normal. No distension. No mass. No tenderness. No rebound. No guarding. Musculoskeletal: RUE: Normal range of motion. No tenderness. No deformity LUE: Normal range of motion. No tenderness. No deformity RLE: Normal range of motion. No edema. No tenderness. No deformity LLE: Normal range of motion. No edema. No tenderness. No deformity Lymph: No cervical adenopathy. Neurological: Mental status normal. Attention normal. Alert and oriented x3. GCS 15. Memory normal. Speech fluent. Cognition normal. Cranial Nerves intact II-XII except I did not formally test gag or visual acuity. EOMI. Palate elevates symmetrically and tongue protrudes in the midline. Strength: 5/5 trapezius on the right and left 5/5 deltoid on the right and left 5/5 biceps on the right and left 5/5 triceps on the right and left 5/5 warehouse representative on the right and left 5/5 thumb opposition on the right and le ft 5/5 finger abduction on the right and le ft 5/5 hip flexors (L3) on the right and le ft 5/5 quadriceps (L4) on the right and lef t 5/5 tibialis anterior on the right and l eft 5/5 EHL (L5) on the right and left 5/5 gastrocnemius (S1) on the right and left 5/5 hamstring on the right and left Sensation intact to light touch in left upper extremity (C4-T1) but tinglign right hand C6-C8 Sensation intact to light touch in Both lower extremities (L4-S1). Finger to nose and coordination normal. Gait normal. Skin: Skin is warm and dry. No rash noted. No pallor. Normal capillary refill. Psychiatric: Normal mood. Normal affect. Const: Vital Signs, click to edit/add: Vital Signs - 24 hr 09/03/24 20:35 09/03/24 21:49 09/03/24 21:54 Temperature 98.8 F 97.8 F Pulse Rate Pulse Rate [Pulse Oximeter] 68 63 Respiratory Rate 18 18 Blood Pressure Blood Pressure [Le ft Upper Arm] 166/77 H 155/97 H Pulse Oximetry 98 96 [facility] Room Air 09/03/24 22:31 09/03/24 22:45 09/03/24 23:00 Temperature Pulse Rate 61 61 61 Pulse Rate [Pulse Oximeter] Respiratory Rate 13 15 17 Blood Pressure 124/78 Blood Pressure [Le ft Upper Arm] Pulse Oximetry 95 96 94 Oxygen Delivery Ok thod 09/03/24 23:09 09/03/24 23:32 09/04/24 00:02 Temperature 98.0 F Pulse Rate 60 61 62 Pulse Rate [Pulse Oximeter] Respiratory Rate 13 16 18 Blood Pressure 124/78 117/59 L 118/60 Blood Pressure [Le ft Upper Arm] Pulse Oximetry 95 95 93 Oxygen Delivery Me thod 09/04/24 00:32 Temperature 98.5 F Pulse Rate 65 Pulse Rate [Pulse Oximeter] Respiratory Rate 16 Blood Pressure 119/61 Blood Pressure [Le ft Upper Arm] Pulse Oximetry 95 Oxygen Delivery Me thod Course Vital Signs Vital signs: Initial Vital Signs Temperature 98.8 F 09/03/24 20:35 Temperature Source Temporal Artery Scan 09/03/24 20:35 Pulse Rate 68 09/03/24 20:35 Pulse Rhythm Regular 09/03/24 20:35 Respiratory Rate 18 09/03/24 20:35 Blood Pressure 166/77 H 09/03/24 20:35 Blood Pressure Mean 106 H 09/03/24 20:35 Blood Pressure Position Sitting 09/03/24 20:35 Pulse Oximetry 98 09/03/24 20:35 Oxygen Delivery Method Room Air 09/03/24 20:35 Vital Signs Temperature 98.8 F 09/03/24 20:35 Pulse Rate 68 09/03/24 20:35 Respiratory Rate 18 09/03/24 20:35 Blood Pressure 166/77 H 09/03/24 20:35 Pulse Oximetry 98 09/03/24 20:35 Oxygen Delivery Method Room Air 09/03/24 20:35 Temperature 98.5 F 09/04/24 00:32 Pulse Rate 65 09/04/24 00:32 Respiratory Rate 16 09/04/24 00:32 Blood Pressure 119/61 09/04/24 00:32 Pulse Oximetry 95 09/04/24 00:32 Oxygen Delivery Method Room Air 09/03/24 21:49 Medical Decision Making [facility] Narrative Medical decision making narrative: Very pleasant 79-year-old woman with some memory loss and history of strokes presenting to the ER today with paresthesias involving his right hand and arm for the past several days, worse for the past couple of days and now associated with headache. Symptoms are reminiscent of previous strokes (the patient had multiple strokes in 2017). Differential here would include cervical radiculopathy but is not really having any neck pain and does not really have a dermatomal component to his and paresthesias. There is no evidence for color change other signs of acute limb ischemia. Pulses are strong and symmetric. Cap refill is normal. There is no swelling to suggest DVT. No redness or warmth a suggest infection in his arm or hand. Concern here is for possible stroke over since the numbness was initially intermittent, consider possible multiple TIAs this week. Initial workup for that is reassuring with normal head CT and CT angiogram showing no large vessel occlusion or critical carotid stenosis. However patient will need admission for MRI and further workup. Discussed with stroke neurology, Dr. Glynn. She would agree with the plan to admit for MRI (which cannot be obtained in the ER at night but can be obtained, if he is admitted, in the morning). For now continue on his regular regimen of Plavix. Do not change antiplatelets unless there actually is a definitive stroke seen on his MRI. She recommends formal tele Stroke Neurology consult in the morning. Laboratory workup shows generally normal electrolytes, kidney function, blood counts. EKG shows sinus rhythm. Troponin is undetectable. Discussed plan of care with the patient and his and they are in agreement. He is accepted by the overnight tele hospitalist from [facility]. Lab Data Labs: Lab Results 09/03/24 09/03/24 09/03/24 Range/Units 20:40 21:23 22:03 WBC 3.69 L (4.50-11.00) K/uL RBC 4.25 L (4.30-5.90) m/uL Hgb 13.2 L (13.5-17.5) gm/dL Hct 38.2 (37.0-53.0) % MCV 90 (80-100) fL MCH 31 (26-34) pg MCHC 35 (32-36) gm/dL RDW Coeff of Yudi 14.7 (11.5-15.5) % Plt Count 99 L (140-440) K/uL Neut % (Auto) 55.0 (42.0-72.0) % Lymph % (Auto) 40.1 (20-44) % [place] % (Auto) 3.3 (0.0-11.0) % Eos % (Auto) 1.6 (0.0-7.0) % Baso % (Auto) 0.0 (0.0-3.0) % Neut # (Auto) 2.00 (1.7-7.0) K/uL Lymph # (Auto) 1.50 (0.90-2.90) K/uL [place] # (Auto) 0.10 (0.00-0.90) K/UL Eos # (Auto) 0.10 (0.00-0.50) K/uL Baso # (Auto) 0.00 (0.00-0.30) K/uL Abs Immat Gran (auto) 0.00 (0.00-0.30) K/uL Imm/Tot Granulo (auto) 0.0 % INR 0.97 (0.91-1.10) Sodium 137 (135-149) mmol/L Potassium 4.5 (3.6-5.1) mmol/L Chloride 107 (96-114) mmol/L Carbon Dioxide 22 (20-32) mmol/L Anion Gap 8 (7-15) mEq/L BUN 22 (7-30) mg/dL Creatinine 1.2 (0.5-1.5) mg/dL Estimated Creat Clear 58.99 Estimated GFR 62 ml/min Glucose 94 (60-115) mg/dL Calcium 9.2 (8.4-10.6) mg/dL POC Creatinine 1.3 (0.6-1.3) mg/dl POC Troponin I 0.00 L (0.01-0.04) ng/ml Imaging Data CT scan - head: Attestation: I have reviewed the pertinent imaging results. Radiologist's impression: IMPRESSION: No acute intracranial abnormality on this noncontrast study. Moderate chronic white matter ischemic disease with chronic left frontoparietal infarction. CTA head and neck: Attestation: I have reviewed the pertinent imaging results. Radiologist's impression: IMPRESSION: CTA head: No sign of large vessel occlusion or significant aneurysm. CTA neck: No sign of dissection. Atherosclerotic calcifications of the carotid bifurcations with moderate narrowing of the right proximal ICA. No significant narrowing of the left ICA by NASCET criteria. Patent cervical vertebral arteries. Discharge Plan Discharge Clinical Impression: Arm paresthesia, right Patient Disposition: Admitted As Observation
[2024-09-03 21:26] LABS: Troponin, Point-of-Care* 0.00 ng/ml (0.01-0.04)
--- NOTE | 2024-09-03 21:38 | CRLHL7_ITS ---
For Patients: As a result of the Century Cures Act, medical imaging exams and procedure reports are released immediately into your electronic medical record. You may view this report before your referring provider. If you have questions, please contact your health care provider. INDICATION: Acute stroke. TECHNIQUE: CTA head with contrast bolus tracking, 3D angiographic rendering using maximum intensity projection (MIP) and images permanently archived. FINDINGS: There is scattered intracranial atherosclerotic disease. There is normal opacification of the intracranial vasculature. There is no large vessel occlusion. No aneurysm is identified. IMPRESSION: No acute intracranial abnormality at CTA. Please note that all CT scans at this facility use dose modulation, iterative reconstruction, and/or weight-based dosing when appropriate to reduce radiation dose to as low as reasonably achievable. Dictated by Obi Park MD @ 09/04/2024 12:31:59 PM (Electronically Signed)
--- NOTE | 2024-09-03 21:38 | CRLHL7_ITS ---
For Patients: As a result of the Century Cures Act, medical imaging exams and procedure reports are released immediately into your electronic medical record. You may view this report before your referring provider. If you have questions, please contact your health care provider. INDICATION: Acute stroke. TECHNIQUE: CTA neck with contrast bolus tracking, 3D angiographic rendering using maximum intensity projection (MIP) and images permanently archived. FINDINGS: There is carotid atherosclerosis bilaterally. There is atherosclerotic plaque in the proximal right ICA resulting in a moderate stenosis, 65% by NASCET. There is no significant left carotid artery stenosis or dissection. There is no significant vertebral artery stenosis or dissection. The soft tissues of the neck are within normal limits. The cervical spine is in normal alignment. Degenerative changes are noted in the cervical spine. IMPRESSION: Moderate proximal right ICA stenosis, 65% by NASCET. Please note that all CT scans at this facility use dose modulation, iterative reconstruction, and/or weight-based dosing when appropriate to reduce radiation dose to as low as reasonably achievable. Dictated by Obi Park MD @ 09/04/2024 12:35:34 PM (Electronically Signed)
[2024-09-03 21:47] LABS: Hematocrit 38.2 % (37.0-53.0); Hemoglobin* 13.2 gm/dL (13.5-17.5); Immature Granulocytes Abs Auto 0.00 K/uL (0.00-0.30); Immature Granulocytes Pct Auto 0.0 %; Mean Corpuscular HGB Conc 35 gm/dL (32-36); Mean Corpuscular Hemoglobin 31 pg (26-34); Mean Corpuscular Volume 90 fL (80-100); RDW Coefficient of Variation % 14.7 % (11.5-15.5); Red Blood Count 4.25 m/uL (4.30-5.90); White Blood Count* 3.69 K/uL (4.50-11.00)
[2024-09-03 21:50] LABS: Lymphocytes Absolute Auto 1.50 K/uL (0.90-2.90); Slide Review Reflex No
[2024-09-03 22:00] LABS: Chloride* 107 mmol/L (96-114); Potassium* 4.5 mmol/L (3.6-5.1); Sodium* 137 mmol/L (135-149)
[2024-09-03 22:01] LABS: INR 0.97 (0.91-1.10); Prothrombin Time 13.7 Seconds
[2024-09-03 22:02] LABS: Blood Urea Nitrogen* 22 mg/dL (7-30); Creatinine* 1.2 mg/dL (0.5-1.5); Est. Creatinine Clearance* 58.99; Estimated Glomerular Filt Rate 62 ml/min
[2024-09-03 22:03] LABS: Anion Gap 8 mEq/L (7-15); Calcium* 9.2 mg/dL (8.4-10.6); Carbon Dioxide* 22 mmol/L (20-32); Glucose* 94 mg/dL (60-115)
[2024-09-03 22:08] LABS: Creatinine, Point-of-Care* 1.3 mg/dl (0.6-1.3)
[2024-09-04] VITALS (11 sets, daily range): BP systolic 118–155; BP diastolic 60–97; PULSE 51–74; RESP 16–18; TEMP 36.4–36.9; O2SAT 93–97
--- NOTE | 2024-09-04 01:37 | W.PM.TELEH&P ---
Telehealth- H&P: HPI History of Present Illness Time Seen by Provider: 01:15 Date Seen: 09/04/24 Chief complaint: R arm and right hand numb Narrative: Adams Duran is seen as an Interactive Telehealth visit. Adams Duran is a 79 year old male who is Known to have multiple episodes of emergency room visits due to numbness of the right upper extremity and sometimes numbness of the right hand upper and lower extremity leading to MRIs and workup. Past medical Problems Hyperlipidemia Duodenl ulcer -1979April 30, 2016 Right UE and Right LE weakness slurred speech, memory loss was worked up at hospital Diagnosis: 1. Acute Lacunar Infarct left occipital lobe 2.Chronic infarcts left frontal lobe, left parietal lobe 3. L carotid artery stenosis 50-69% 4. residual poor memory Was referred to Neurology at [facility] with Neurologist Dr Mignon Weber, MPH. Started Aspirin 81 mg a day Plavix 75 mg a day Crestor 20 mg a day MRI April 30 Impression: 1. Two punctate late acute infarcts of the left occipital lobe. 2. Chronic infarcts the left centrum semiovale, lateral left frontal lobe in paramedian left parietal lobe. 3. Mild supratentorial white matter change that is nonspecific but in patient`s age likely due to chronic small vessel ischemic change. 4. Large right maxillary sinus retention cyst or polyp with complete opacification of the sinus compatible with severe changes. Carotid Artery US May 02, 2016 IMPRESSION: 1. By NASCET criteria, 50-69% diameter reduction stenosis involving the left internal carotid artery, with the degree of stenosis felt to be at the upper end of this range, given the visual appearance at realtime siddiqui-scale imaging. 2. By NASCET criteria, less than 50% diameter reduction stenosis involving the right internal carotid artery. 3. Bilateral antegrade vertebral artery flow. Jan 2017 right total hip arthroplasty Mar 14, 2017 seen at ER for numbness right lower arm and right hand - TIA suspected MRI Mar 14 2017 MRI Head: 1. Multiple small foci acute cortical and subcortical infarction are seen in the parasagittal left cerebral hemisphere. Several of these lie adjacent to small to moderate-sized chronic infarcts a similar distribution. 2. No hemorrhage or mass effect. 3. Baseline moderate small vessel ischemic changes and mild cerebral atrophy, unchanged from 04/20/2016. MRA Head: Unremarkable exam. MRA Neck: 1. There is a 50 percent diameter stenosis in the proximal left internal carotid artery. No Mar 2017 Holter Monitor normal sinus rhythm no Afib, no SVT sustained April 2017 Carotid endarterectomy left at [facility] September 11, 2017 seen at ER numbness at right hand in glove like fashion MRI Brain 09-11-2017 IMPRESSION: 1. No acute infarction, mass effect, or intracranial hemorrhage. 2. Multiple small chronic infarctions in the left frontal and left parietal lobes. 3. Hsdw-iq-yjiruzae chronic microvascular ischemic disease. Dictated by Ishmael Briscoe MD @ Sep 11 2017 11:31A Nov 2019 Dr Weber referrd him for Sleep study due to worsening memory loss (+) ROME and started using CPAP June 08, 2020 numbness right UE kevin hand was seen at ER and admitted to hospital was worked up Diagnosis on Discharge: 1. Chronic intermittent right-sided paresthesias. 2. History of strokes in the past, ischemic and embolic. 3. Status post carotid endarterectomy in the past. 4. Hyperlipidemia. 5. Major depressive disorder. 6. Mild cognitive impairment. 7. Peripheral neuropathy. 8. Multifactorial gait disorder. 9. Obstructive sleep apnea. 10. History of duodenal ulcer. MRI Brain 06-08-2020 IMPRESSION: 1. No evidence of acute ischemic infarction or intracranial hemorrhage. 2. Several stable chronic cortical based infarcts within the left cerebral hemisphere. Chronic small vessel ischemic changes within the deep bilateral cerebral white matter, basal ganglia and julien also appear stable. 3. Incidental partial bilateral mastoid effusions and mild chronic paranasal sinus inflammation. 4. No large vessel occlusion or high-grade stenosis of the proximal cerebral arteries. Mild atherosclerotic changes. 5. Status post left carotid endarterectomy. No evidence of hemodynamically significant carotid artery or vertebral artery stenosis at this time. 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 and starts him on Sertraline June 26, 2021 Colonoscopy 3 polyps biopsied: tubular adenoma multiple sigmoid diverticula Dec 2021 sees Primary care provider as out patient for chronic numbness right hand - Physician concerned that he no longer takes Aspirin but is still on Plavix last note from Dr Weber was June 23, 2020 visit stating increase aspirin to 325 mg a day - she refers him for EMG right median nerve to evaluate for carpal tunnel disease, she refers him to [facility] but he never gets this done Dec 2021 ER Visit for Right ureter stone Adams came to ER complaining of 1 week of numbness of hand. This is concerning for worsening poor memory as he was already advised by the Neurologist Dr Weber that this numbness if from an UMN lesion from previous stroke involving the left frontoparietal region and his primary care doctor was also working him up for this chronic numbness of right hand and even referred him for an EMG that he did not have done. At the ER he had a CT scan of brain that showed the old brain lesions he had from 2017 stroke but no hemorrhage and no new lesion. He still takes his Plavix but not aspirin. Dr Weber's last transmitted note from [facility] was dated August 23, 2020 and in that note it is still documented that patient be on Aspirin 325 mg a day along with Plavix 75 mg a day and his Crestor was increased to 40 mg a day. ER physician darcy spoke to information technology assistant Neuro stroke telehealth doctor who recommended : 1. admit 2. get [place] Brain 3. Continue Plavix 75 mg a day order formal tele stroke neurology consult in the morning When I spoke to patient at the bedside he says he never had numbness in the right hand up until 1 week ago. I asked him if he has ever had a heart attack or a stroke in the past and he said no. His was already at home but it was 2 am so I did not call her to get a history about the patient's possible worsening dementia/ poor memory and the numbness of the hand. Otherwise the patient denies any chest pain, no fever, no chills, no weakness of limbs, no slurred speech, no headache. No numbness elsewhere in the body. Past medical history: 1. History of ischemic versus embolic stroke April 20, 2016. Lesions were found at the left frontoparietal area coronal area. Slurred speech, right upper and lower extremity weakness improved however he had residual numbness of the right hand and right lower arm as well as poor memory which was thought to be a result of the stroke. 2. Left carotid artery stenosis 50 to 69% diagnosed April 2016 resulting in surgery and carotid endarterectomy on the left on April 2017 3. Hyperlipidemia he should be on Crestor 40 mg a day 4. Depression for which she should be on sertraline 5. Episode of TIA March 14, 2017, September 11, 2017, June 08, 2020 all this 3 times he presented with numbness of the right hand and the right lower arm. 6. Numbness of the right hand was diagnosed by Dr. Weber on his visit of July 12, 2020 as an upper motor neuron lesion most likely residual effect of his stroke. This is not the same as peripheral neuropathy 7. Low platelet count Date 03-14-17 09-11-17 10-23-18 11-23-2019 06-08-2020 plt count 188,000 126,000 147,000 105,000 117,000 8. Multifactorial gait disorder order 9. Obstructive sleep apnea supposed to be on CPAP 10. Remote history of duodenal ulcer in the 11. Colonoscopy showed sigmoid diverticulosis in June 26, 2021 12. Colonoscopy June 26, 2021 revealed 3 polyps which were biopsied and pathology shows tubular adenoma 13. Poor memory which they thought was a residual effect of the stroke he had in April 20, 2016. Past surgical history 1. Status post tonsillectomy and adenoidectomy 2. Status post total hip arthroplasty January 2017 3. Status post left carotid endarterectomy April 2017 Home medications were reviewed Still not clear why he was taken off aspirin Last note on this EMR from his neurologist Dr. 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 His is a retired nurse He has 4 adult children. He does not smoke. He tells me he drinks maybe 3 drinks a week. Family medical history was reviewed CODE STATUS full code Telehealth visit: Today's history and physical is via interactive telehealth by Luisana Torres MD. The patient is located at [facility]. Physician is located at [facility]. Nursing staff assisted in the patient's exam. The visit being done today meets criteria for a telehealth visit and the patient or patient's parent/guardian is aware the visit is a telehealth visit. Camera start time 01109-04-2024 Camera end time 01409-04-2024 [facility] Medical History (Updated 09/04/24 @ 05:56 by Luisana Torres MD) History of duodenal ulcer (1979) ?Z87.19 - Personal history of other diseases of the digestive system (ICD-10) Stenosis of carotid artery ?I65.29 - Occlusion and stenosis of unspecified carotid artery (ICD-10) Surgical History (Updated 05/07/22 @ 08:29 by Britt Yanes MD) History of cataract surgery ?Z98.49 - Cataract extraction status, unspecified eye (ICD-10) History of total hip replacement (2016) ?Z96.649 - Presence of unspecified artificial hip joint (ICD-10) History of tonsillectomy ?Z90.89 - Acquired absence of other organs (ICD-10) History of carotid endarterectomy (05/14/17) ?Z98.890 - Other specified postprocedural states (ICD-10) Carpal tunnel syndrome of right wrist (01/07/19) ?G56.01 - Carpal tunnel syndrome, right upper limb (ICD-10) Social History (Updated 06/01/24 @ 14:48 by Zina Osman ~ [facility]) What is your current living situation?: I presently have a place to live Problems where you live: no known problems In the past 12 months, utilities in danger of being shut off: no In past 12 months, lack of transportation kept you from medical appts, meetings, work, or getting things needed for daily living: no In the past 12 mos, have been you worried that your food would run out before you had money to buy more?: never true In the past 12 mos, the food you bought just didn't last and you didn't have money to buy more?: never true Smoking Status: Never smoker How often do you have a drink containing alcohol: monthly or less How many standard drinks containing alcohol do you have on a typical day: 1 or 2 AUDIT-C Alcohol total score: 1 Non-prescribed substance use: denies use How often does anyone, including family, friends and others, physically hurt you: never How often does anyone, including family, friends and others, insult or talk down to you: never How often does anyone, including family, friends and others, threaten you with harm: never How often does anyone, including family, friends and others, scream or curse at you: never Meds Home Medications and Allergies Home Medications ?Medication ?Instructions ?Recorded ?Confirmed ?Type multivitamin 1 tab PO QAM 12/21/21 06/01/24 History omega-3 fatty acids 1,000 mg 1,000 mg PO QDAY 12/21/21 06/01/24 History capsule clopidogrel 75 mg tablet 75 mg PO QDAY #90 tabs 06/01/24 06/01/24 Rx omeprazole 20 mg capsule,delayed 20 mg PO QDAY #90 caps 06/01/24 06/01/24 Rx release rosuvastatin 40 mg tablet 40 mg PO QDAY #90 tabs 06/01/24 06/01/24 Rx sertraline 100 mg tablet 100 mg PO QDAY #90 tabs 06/01/24 06/01/24 Rx Allergies Allergy/AdvReac Type Severity Reaction Status Date / Time No Known Drug Allergies Allergy Verified 09/03/24 22:25 Exam Narrative Exam Narrative: This is a telehealth visit and the nurse at the bedside help me collect information and help interview him as well as do the physical exam. Physical Exam GENERAL: ?vital signs reviewed, well developed and nourished, in no distress HEENT: pupils are equal round and reactive to light, extraocular movements are grossly within normal limits and oral mucosa is moist. NECK: Supple without lymphadenopathy or thyromegaly according to nursing staff examination observation HEART: Regular rate and rhythm without any rubs, murmurs, or gallops. LUNGS: Clear to auscultation bilaterally with good air movement throughout ABDOMEN: Observation from nurse assisted exam, abdomen appears soft, nontender, and nondistended with Positive bowel sounds noted. EXTREMITIES: Right upper and left lower extremity seem to have good range of motion I was not at the bedside to titrate the strength but the left side seem to be 5/5 the patient says the right hand is numb starting from the wrist to the tip of the fingers of all fingers palmar aspect and dorsal aspect almost like a glove. Denied any numbness in the lower arm which was present while he was in the ER. He had good range of motion of the left uE and Left LE SKIN:? Observed warm and dry with color normal Telehealth visit: Today's history and physical is via interactive telehealth by Luisana Torres MD. The patient is located at [facility]. Physician is located at [facility]. Nursing staff assisted in the patient's exam. The visit being done today meets criteria for a telehealth visit and the patient or patient's parent/guardian is aware the visit is a telehealth visit. Camera start time 01109-04-2024 Camera end time 13909-04-2024 Const Vital Signs, click to edit/add: Vital Signs - 24 hr 09/03/24 20:35 09/03/24 21:49 09/03/24 21:54 Temperature 98.8 F 97.8 F Pulse Rate Pulse Rate [Pulse Oximeter] 68 63 Respiratory Rate 18 18 Blood Pressure Blood Pressure [Left Upper Arm] 166/77 H 155/97 H Pulse Oximetry 98 96 Oxygen Delivery Method Room Air Room Air 09/03/24 22:31 09/03/24 22:45 09/03/24 23:00 Temperature Pulse Rate 61 61 61 Pulse Rate [Pulse Oximeter] Respiratory Rate 13 15 17 Blood Pressure 124/78 Blood Pressure [Left Upper Arm] Pulse Oximetry 95 96 94 Oxygen Delivery Method 09/03/24 23:09 09/03/24 23:32 09/04/24 00:02 Temperature 98.0 F Pulse Rate 60 61 62 Pulse Rate [Pulse Oximeter] Respiratory Rate 13 16 18 Blood Pressure 124/78 117/59 L 118/60 Blood Pressure [Left Upper Arm] Pulse Oximetry 95 95 93 Oxygen Delivery Method 09/04/24 00:32 Temperature 98.5 F Pulse Rate 65 Pulse Rate [Pulse Oximeter] Respiratory Rate 16 Blood Pressure 119/61 Blood Pressure [Left Upper Arm] Pulse Oximetry 95 Oxygen Delivery Method Hospitalist - H&P: Result Labs Labs: Short CBC 09/03/24 Range/Units 20:40 WBC 3.69 L (4.50-11.00) K/uL Hgb 13.2 L (13.5-17.5) gm/dL Hct 38.2 (37.0-53.0) % Plt Count 99 L (140-440) K/uL BMP 07/17/25 20:40 Sodium 137 Potassium 4.5 Chloride 107 Carbon Dioxide 22 BUN 22 Creatinine 1.2 Glucose [address] head without contrast. COMPARISON: June 08, 2020.09-03-2024 FINDINGS: CSF spaces: Mild diffuse parenchymal volume loss. Brain parenchyma and extra-axial spaces: Moderate chronic white matter ischemic disease with chronic left frontoparietal infarction. The siddiuqi-white differentiation is normal. No sign of mass, hemorrhage, or midline shift. No extra-axial fluid collection. Skull base and calvarium: Mild right maxillary sinus mucoperiosteal thickening. Otherwise, the visualized paranasal sinuses and mastoid air cells demonstrate no acute or significant findings. The visualized orbits are grossly unremarkable. No skull fractures. IMPRESSION: No acute intracranial abnormality on this noncontrast study. Moderate chronic white matter ischemic disease with chronic left frontoparietal infarction. Please note that all CT scans at this facility use dose modulation, iterative reconstruction, and/or weight-based dosing when appropriate to reduce radiation dose to as low as reasonably achievable. Dictated by Stephen Hull MD @ 09/03/2024 9:11:10 PM MRI Brain Mar 14, 2017: R hand and lower arm numb and weak MRI Head: Several small foci of restricted cortical diffusion are seen in the parasagittal left frontal, parietal and occipital lobes compatible with acute infarcts. Many of these lie adjacent to foci of chronic infarction, some of which were imaged in their acute or subacute phase on 04/20/2016. The distribution suggests left carotid watershed insults. No evidence for recent or remote hemorrhage. No intracranial mass effect. No ventricular obstruction. Background moderate small vessel ischemic change and minimal cerebral atrophy, stable from the previous study. No abnormal IV gadolinium enhancement involving the brain parenchyma, meninges, calvarium or skull base. Grossly normal flow voids are maintained in the directly imaged intracranial vascular structures. The craniovertebral junction is unremarkable, with a patent foramen magnum. Both temporal bones are clear. There is slight membrane thickening in the ethmoid paranasal sinuses. MRA Head: The visualized first and second order intracranial vessels are unremarkable. No occlusion/filling defect or acquired arterial stenosis identified. No aneurysm or vascular malformation seen. MRA Neck: Atheromatous changes of the left carotid bifurcation with a moderate stenosis in the proximal internal carotid artery approaching 50 percent diameter reduction. No evidence for hemodynamically significant right internal carotid artery stenosis by NASCET criteria. The cervical segments of both vertebral arteries are patent. The visualized portions of the aortic arch, great vessel origins and proximal subclavian arteries are unremarkable. Impression: MRI Head: 1. Multiple small foci acute cortical and subcortical infarction are seen in the parasagittal left cerebral hemisphere. Several of these lie adjacent to small to moderate-sized chronic infarcts a similar distribution. 2. No hemorrhage or mass effect. 3. Baseline moderate small vessel ischemic changes and mild cerebral atrophy, unchanged from 04/20/2016. MRA Head: Unremarkable exam. MRA Neck: 1. There is a 50 percent diameter stenosis in the proximal left internal carotid artery. MRI Brain 09-11-2017 The ventricles are not enlarged for patient age. Multiple small chronic infarctions in the left cerebral hemisphere, including involvement of the posterolateral left frontal lobe, posterior left frontal centrum semiovale, and parasagittal left parietal lobe. Additional scattered and patchy foci of T2 FLAIR hyperintensity in the supratentorial white matter, compatible with sequelae of [id number]-et-vwohwepu diffuse cerebral volume loss. Chronic lacunar infarctions in the right basal ganglia. No intracranial hemorrhage or pathologic extra-axial fluid collection. No areas of diffusion restriction are identified to suggest acute infarction. The major arterial flow voids of the skullbase are preserved. Small retention cysts or polyps in the maxillary sinuses. Mild mucosal thickening in the ethmoid air cells. Trace fluid in the mastoid air cells. IMPRESSION: 1. No acute infarction, mass effect, or intracranial hemorrhage. 2. Multiple small chronic infarctions in the left frontal and left parietal lobes. 3. Olce-hi-lmkdfusl chronic microvascular ischemic disease. Dictated by Ishmael Briscoe MD @ Sep 11 2017 11:31A MRI Brain 06-08-2020 FINDINGS: MRI brain: Ventricles and subarachnoid spaces mildly in proportionately enlarged due to mild volume loss no evidence of recent ischemic infarction. No evidence of recent intracranial hemorrhage. No diffusion restriction. No areas of abnormal susceptibility effect. Multiple focal areas of FLAIR and T2 signal hyperintensity involves the left posterior frontal and parietal lobe cortex and adjacent deeper white matter with associated small areas of cavitation in the mid left romo radiata. Findings consistent with chronic infarcts and appear stable comparing to the prior MRI scan. Additional small foci of FLAIR/T2 hyperintensity within bilateral cerebral white matter, bilateral basal ganglia and julien consistent with chronic small vessel ischemic changes. There are no enhancing intra-axial or extra-axial lesions. The orbits, sella turcica and skullbase are unremarkable. Small chronic retention cysts in the maxillary sinuses. Partial bilateral mastoid effusions. MRA [place]: The distal internal carotid arteries and basilar artery are patent there is mild atherosclerotic irregularity of the supraclinoid left ICA and mid basilar artery. The horizontal segments and proximal branches of anterior middle and posterior cerebral arteries are shown to be patent. MRA carotid arteries vertebral arteries: The bilateral common carotid arteries internal and external carotid arteries are patent. There is improved appearance of the left proximal internal carotid artery compared to the prior scan consistent with prior endarterectomy. Mild narrowing of the proximal right ICA, less than 50 percent by NASCET criteria. No evidence of hemodynamically significant carotid artery or vertebral artery stenosis. IMPRESSION: 1. No evidence of acute ischemic infarction or intracranial hemorrhage. 2. Several stable chronic cortical based infarcts within the left cerebral hemisphere. Chronic small vessel ischemic changes within the deep bilateral cerebral white matter, basal ganglia and julien also appear stable. 3. Incidental partial bilateral mastoid effusions and mild chronic paranasal sinus inflammation. 4. No large vessel occlusion or high-grade stenosis of the proximal cerebral arteries. Mild atherosclerotic changes. 5. Status post left carotid endarterectomy. No evidence of hemodynamically significant carotid artery or vertebral artery stenosis at this time. Dictated by Lucas Torres MD @ 06/08/2020 1:45:46 PM Assessment and Plan Assessment and plan (1) Numbness of right hand: Status: Acute (2) TIA (transient ischemic attack): Status: Acute (3) Poor memory: Status: Acute (4) Hyperlipidemia: Problem comment: simvastatin intensified to crestor 05/04 Status: Acute (5) Major depressive disorder: Problem comment: Started on sertraline by neurologist, Dr. Weber, 08/04, for subjective memory complaints/depression/pseudodementia Status: Acute (6) Multifactorial gait disorder: Problem comment: since 02/03 (chronic dizziness) Status: Acute (7) Obstructive sleep apnea syndrome: Problem comment: Dr. Weber, neurologist, Dxed ROME, placed on CPAP 2019 Status: Acute Plan 1. Admit for observation 2. ER doctor did speak to our telehealth neurologist stroke team physician last night who recommended to do a formal consult with the stroke team today. I will leave it up to the daytime physician to do this as they may need to do Dr. To Dr. Call. 3. Stroke protocol was initiated 4. Continue Plavix 75 mg a day however I am concerned because his platelet count was lower today it was 99,000. 5. Continue Crestor 40 mg a day check fasting cholesterol today check fasting A1c or fasting glucose as well. 6. Continue rest of home medications once reconciled 7. May have to retrieve all other records from the office of his neurologist Dr. Weber at the [facility] since he may have seen Dr. Weber after June or August 2020. Those records may explain why he is no longer on aspirin. 8. May have to be deep in the finding out the extent of his dementia and poor memory as it seems like he does not remember that the numbness in his hand has been worked up by his primary care doctor in the past. And that his neurologist told him that the numbness in his hand is from the upper motor neuron lesion that he sustained when he had a stroke in his April 2016. 10. CODE STATUS full code 11. DVT prophylaxis SCDs Telehealth visit: Today's history and physical is via interactive telehealth by Luisana Torres MD. The patient is located at [facility]. Physician is located at [facility]. Nursing staff assisted in the patient's exam. The visit being done today meets criteria for a telehealth visit and the patient or patient's parent/guardian is aware the visit is a telehealth visit. Camera start time 01109-04-2024 Camera end time 13909-04-2024 Telehealth: Statement Statement Telehealth Visit: Today's History and Physical is provided via interactive telehealth by Luisana Torres MD.? Patient is located at [facility].? Provider is located at [facility].? Nursing staff assisted with the patient's exam. The visit being done today meets criteria for a telehealth visit and the patient or patient?s parent/guardian is aware the visit is a telehealth visit.
[2024-09-04 06:01] LABS: Hematocrit 38.7 % (37.0-53.0); Hemoglobin* 13.2 gm/dL (13.5-17.5); Immature Granulocytes Abs Auto 0.00 K/uL (0.00-0.30); Immature Granulocytes Pct Auto 0.0 %; Mean Corpuscular HGB Conc 34 gm/dL (32-36); Mean Corpuscular Hemoglobin 31 pg (26-34); Mean Corpuscular Volume 90 fL (80-100); RDW Coefficient of Variation % 14.5 % (11.5-15.5); Red Blood Count 4.31 m/uL (4.30-5.90); White Blood Count* 3.24 K/uL (4.50-11.00)
[2024-09-04 06:13] LABS: Lymphocytes Absolute Auto 1.40 K/uL (0.90-2.90); Slide Review Reflex No
--- NOTE | 2024-09-04 06:44 | PC.NURSE ---
The patient arrived to the floor overnight. Pleasant, and alert and orientated. The patient reports intermittent numbness to his R arm for the past week. Not present upon admission. Moving well independently in the room, tele is sinus bradycardia. MRI to happen today. Jammie PYLE BSN
[2024-09-04 06:53] LABS: Albumin* 4.4 g/dL (3.3-5.0); Chloride* 106 mmol/L (96-114); Potassium* 4.4 mmol/L (3.6-5.1); Sodium* 138 mmol/L (135-149)
[2024-09-04 06:55] LABS: Alanine Aminotransferase* 47 U/L (4-50); Anion Gap 8 mEq/L (7-15); Aspartate Amino Transferase* 43 U/L (12-35); Blood Urea Nitrogen* 22 mg/dL (7-30); Carbon Dioxide* 24 mmol/L (20-32); Creatinine* 1.1 mg/dL (0.5-1.5); Est. Creatinine Clearance* 64.35; Estimated Glomerular Filt Rate 69 ml/min
[2024-09-04 06:56] LABS: Alkaline Phosphatase* 83 U/L (40-150); Bilirubin Total* 1.1 mg/dL (0.1-1.5); Calcium* 9.0 mg/dL (8.4-10.6); Cholesterol* 128 mg/dL (90-199); Glucose* 108 mg/dL (60-115); HDL Cholesterol* 31 mg/dL (>=40); Total Protein* 6.8 g/dL (6.0-8.3); Triglycerides* 115 mg/dL (40-149)
[2024-09-04 07:43] LABS: Vitamin B12* 258 pg/mL (243-894)
--- NOTE | 2024-09-04 08:00 | CRLHL7_ITS ---
For Patients: As a result of the Century Cures Act, medical imaging exams and procedure reports are released immediately into your electronic medical record. You may view this report before your referring provider. If you have questions, please contact your health care provider. Indication: 1 week numbness right lower arm and hand Technique: Noncontrast sagittal T1 weighted, axial FLAIR, axial T2 weighted, and axial diffusion weighted sequences are provided. Comparison: 06/08/2020 Findings: No mass effect or midline shift. No hydrocephalus. There is no evidence of diffusion restriction to suggest acute ischemia. Moderate region of confluent T2 prolongation in the left frontal and parietal lobes in the watershed territory. Few chronic ischemic infarcts in the left frontal lobe. Mild parenchymal volume loss. Multiple scattered foci of T2 prolongation in the supratentorial white matter of both cerebral hemispheres. No suspicious extra-axial collection or acute intracranial hemorrhage. Mild FLAIR signal hyperintensities in the brainstem. Expected intracranial vascular flow voids are preserved. Mild mastoid effusions. Rightward deviation of the nasal septum with septal spur. Mild polypoid mucosal thickening in the right maxillary sinus. The calvarial bone marrow signal is within normal limits. The scalp and soft tissues are grossly normal. No pathologic susceptibility artifacts. Impression: 1. No acute intracranial abnormality. No significant changes compared to the prior exam. 2. Stable confluent region of FLAIR signal hyperintensity in the left frontal and parietal lobes involving the left watershed territories as well as chronic ischemic infarcts in the left frontal lobe are unchanged. 3. Chronic small-vessel ischemic changes in the supratentorial white matter and brainstem are unchanged. Dictated by Trevin Dalal MD @ 09/04/2024 9:21:43 AM (Electronically Signed)
[2024-09-04 08:20] LABS: TSH With Reflex to FT4* 2.840 uIU/mL (0.270-4.200)
[2024-09-04] MEDS: SODIUM CHLORIDE 0.9 % (FLUSH) 10 ML SYRINGE 5 ML IVF (09:12)
[2024-09-04] MEDS: SERTRALINE 100 MG TABLET PO (09:12)
[2024-09-04] MEDS: OMEPRAZOLE 20 MG CAPSULE DR PO (10:31)
--- NOTE | 2024-09-04 10:45 | P.IMPN_ITS ---
Subjective Interval history: Adams says the numbness in his right arm has resolved. He thought his old stroke caused left sided symptoms, including slurred speech, face, arm, and leg weakness, but I reviewed his history and saw that he had a left sided stroke with right sided symptoms in 2017 and has had subsequent episodes of R arm n umbness since then. dAams called his , Tereza, and put her on speakerphone. We discussed the MRI results that showed no acute findings, chronic bradycardia, the EKG from yesterday, and that he would still have an ECHO and neuro consult later today. She mentioned that he's been having spells of dizziness/lightheadedness over the past week. He tells me he gets 4-5 of these per day and it sometimes causes fatigue and he is unable to continue yard work because of the symptoms. Exam Narrative: Exam Narrative: General: [No acute distress.] [Awake, alert, oriented x3.] [No pallor.] [No jaundice.] While sitting on the side of the bed, subjective dizziness noted after about 1 minute. HEENT: Left carotid endarterectomy scar present. Oropharynx clear. Mucous membranes [moist]. Cardiovascular: Bradycardic, regular. [No murmurs, gallops, or rubs]. Respiratory: [Clear to auscultation bilaterally. No wheezes or crackles]. Abdomen: Bowel sounds [present]. [Soft, nondistended, nontender]. Extremities: [No] lower extremity edema. Neuro: Romberg is negative. Mild right lower facial droop at rest, able to smile without difficulty. Speech not affected. Cranial nerves 2-12 are intact. Extraocular movements are full. No nystagmus. No facial asymmetry. Tongue is midline. Peripheral vision and vision are grossly intact. Strength is 5/5 in all 4 extremities. DTRs intact and symmetric. Light touch sensation is intact in face body and extremities. Coordination is intact in upper and lower extremities. Const: Vital Signs, click to edit/add: Vital Signs - 24 hr 09/03/24 20:35 09/03/24 21:49 09/03/24 21:54 Temperature 98.8 F 97.8 F Pulse Rate Pulse Rate [Pulse Oximeter] 68 63 Pulse Rate [Right Pulse Oximeter] Respiratory Rate 18 18 Blood Pressure Blood Pressure [Le ft Upper Arm] 166/77 H 155/97 H Blood Pressure [Ri ght Arm] Pulse Oximetry 98 96 Oxygen Delivery Me thod Room Air Room Air 09/03/24 22:31 09/03/24 22:45 09/03/24 23:00 Temperature Pulse Rate 61 61 61 Pulse Rate [Pulse Oximeter] Pulse Rate [Right Pulse Oximeter] Respiratory Rate 13 15 17 Blood Pressure 124/78 Blood Pressure [Le ft Upper Arm] Blood Pressure [Ri ght Arm] Pulse Oximetry 95 96 94 Oxygen Delivery Me thod 09/03/24 23:09 09/03/24 23:32 09/04/24 00:02 Temperature 98.0 F Pulse Rate 60 61 62 Pulse Rate [Pulse Oximeter] Pulse Rate [Right Pulse Oximeter] Respiratory Rate 13 16 18 Blood Pressure 124/78 117/59 L 118/60 Blood Pressure [Le ft Upper Arm] Blood Pressure [Ri ght Arm] Pulse Oximetry 95 95 93 Oxygen Delivery Me thod 09/04/24 00:32 09/04/24 01:40 09/04/24 02:12 Temperature 98.5 F 98.5 F 98.2 F Pulse Rate 65 Pulse Rate [Pulse Oximeter] 63 Pulse Rate [Right Pulse Oximeter] 58 L Respiratory Rate 16 16 16 Blood Pressure 119/61 Blood Pressure [Le ft Upper Arm] 155/97 H Blood Pressure [Ri ght Arm] 151/80 H Pulse Oximetry 95 95 Oxygen Delivery Me thod Room Air 09/04/24 02:34 09/04/24 04:44 09/04/24 07:16 Temperature Pulse Rate 58 L 51 L Pulse Rate [Pulse Oximeter] Pulse Rate [Right Pulse Oximeter] Respiratory Rate Blood Pressure Blood Pressure [Le ft Upper Arm] Blood Pressure [Ri ght Arm] Pulse Oximetry 97 Oxygen Delivery Me thod 09/04/24 07:32 09/04/24 08:13 Temperature 97.6 F Pulse Rate Pulse Rate [Pulse Oximeter] Pulse Rate [Right Pulse Oximeter] 54 L Respiratory Rate 16 16 Blood Pressure Blood Pressure [Le ft Upper Arm] Blood Pressure [Ri ght Arm] 154/78 H Pulse Oximetry 97 97 Oxygen Delivery Me thod Room Air Room Air Labs Labs: Laboratory Results - last 24 hr 09/03/24 09/03/24 09/03/24 20:40 21:23 22:03 WBC 3.69 L RBC 4.25 L Hgb 13.2 L Hct 38.2 MCV 90 MCH 31 MCHC 35 RDW Coeff of Yudi 14.7 Plt Count 99 L Neut % (Auto) 55.0 Lymph % (Auto) 40.1 [place] % (Auto) 3.3 Eos % (Auto) 1.6 Baso % (Auto) 0.0 Neut # (Auto) 2.00 Lymph # (Auto) 1.50 [place] # (Auto) 0.10 Eos # (Auto) 0.10 Baso # (Auto) 0.00 Abs Immat Gran (auto) 0.00 Imm/Tot Granulo (auto) 0.0 INR 0.97 Sodium 137 Potassium 4.5 Chloride 107 Carbon Dioxide 22 Anion Gap 8 BUN 22 Creatinine 1.2 Estimated Creat Clear 58.99 Estimated GFR 62 Glucose 94 Hemoglobin A1c Calcium 9.2 Total Bilirubin AST ALT Alkaline Phosphatase Total Protein Albumin Triglycerides Cholesterol LDL Cholesterol, Calc HDL Cholesterol Vitamin B12 TSH POC Creatinine 1.3 POC Troponin I 0.00 L 09/04/24 05:35 WBC 3.24 L RBC 4.31 Hgb 13.2 L Hct 38.7 MCV 90 MCH 31 MCHC 34 RDW Coeff of Yudi 14.5 Plt Count 87 L Neut % (Auto) 50.3 Lymph % (Auto) 43.5 [place] % (Auto) 4.3 Eos % (Auto) 1.9 Baso % (Auto) 0.0 Neut # (Auto) 1.60 L Lymph # (Auto) 1.40 [place] # (Auto) 0.10 Eos # (Auto) 0.10 Baso # (Auto) 0.00 Abs Immat Gran (auto) 0.00 Imm/Tot Granulo (auto) 0.0 INR Sodium 138 Potassium 4.4 Chloride 106 Carbon Dioxide 24 Anion Gap 8 BUN 22 Creatinine 1.1 Estimated Creat Clear 64.35 Estimated GFR 69 Glucose 108 Hemoglobin A1c 5.6 Calcium 9.0 Total Bilirubin 1.1 AST 43 H ALT 47 Alkaline Phosphatase 83 Total Protein 6.8 Albumin 4.4 Triglycerides 115 Cholesterol 128 LDL Cholesterol, Calc 74 HDL Cholesterol 31 L Vitamin B12 258 TSH 2.840 POC Creatinine POC Troponin I
--- NOTE | 2024-09-04 12:14 | P.DS_ITS ---
DS: Providers Provider Time Seen by Provider: 10:04 Date Seen: 09/04/24 Date of admission: 09/04/24 01:06 Primary care physician: Britt Yanes MD Admitting Clinician: Shereen Blunt MD Consults: 09/04/24 10:41 Consult to Occupational Therapy [CONS] Routine Comment: Reason(s) for OT Consult:: Evaluate and Treat Any Restrictions?:: No Restrictions Consult to Physical Therapy [CONS] Routine Comment: Reason(s) for PT Consult:: Evaluate and Treat Any Restrictions?:: No Restrictions Attending Physician on discharge: Kyung Nevarez MD Date of Discharge: 09/04/24 DS: Diagnosis Discharge Diagnosis (1) Arm paresthesia, right: Status: Acute Problem details: - MRI neg for acute stroke. Appreciate Dr. Kurtz (teleneurology)'s assesment and recommendations: Low suspicion for TIA, possible peripheral neuropathy or radiculopathy vs recrudescence of right side numbness/weakness from prior left hemispheric chronic strokes at times with illness or other stressors. (2) TIA (transient ischemic attack): Status: Ruled-out Problem details: - As above (3) Orthostatic dizziness: Status: Acute Problem details: - reports that he has occasional slow HR at home. HR here have been 60-70s. He is not on rate slowing medication. Orthostatic vital signs are reassuring, and he did not have any orthostatic symptoms here. - Discussed changing positions slowly, waiting a full minute after doing so before walking away. ECHO reassuring. Ziopatch on discharge, f/u with PCP next week. (4) Thrombocytopenia: Status: Acute Problem details: - Present since May 2024, last platelet count before that was in 2021. Possibly due to sertraline. D/w patient and . Will stop sertraline and recheck CBC in clinic in a week. (5) Obstructive sleep apnea syndrome: Status: Chronic Problem details: Dr. Weber, neurologist, Dxed R[place], placed on CPAP 2019 (6) Multifactorial gait disorder: Status: Chronic Problem details: since 02/03 (chronic dizziness) (7) Mild cognitive impairment: Status: Chronic Problem details: first noted 2016, [facility] evaluation Summer 2016 felt related to stroke (s een on MRI) and depression. Dr. Weber (neurology) started SSRI 08/[address] 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 Weber, 08/04, for subjective memory complaints/depression/pseudodementia (9) Hyperlipidemia: Status: Chronic Problem details: simvastatin intensified to crestor 05/04 - crestor 40 mg daily (10) History of embolic stroke: Status: Chronic Problem details: Multiple small vessel strokes seen on MRI 05/04, done for subjective memory complaints, simvastatin intensified to crestor 05/04, Plavix started (changed from aspirin) 10/04, had acute on chronic stroke 03/07 (11) Aortic dilatation: Status: Acute Problem details: 09/04/24 Aortic Arc (preliminary EHCO): 4.2 cm. F/u with PCP as outpatient. DS: Summary Hospital Course Hospital Course: Per H&P: Adams says the numbness in his right arm has resolved. He thought his old stroke caused left sided symptoms, including slurred speech, face, arm, and leg weakness, but I reviewed his history and saw that he had a left sided stroke with right sided symptoms in 2016 and has had subsequent episodes of R arm numbness since then. Adams called his , Tereza, and put her on speakerphone. We discussed the MRI results that showed no acute findings, chronic bradycardia, the EKG from yesterday, and that he would still have an ECHO and neuro consult later today. She mentioned that he's been having spells of dizziness/lightheadedness over the past week. He tells me he gets 4-5 of these per day and it sometimes causes fatigue and he is unable to continue yard work because of the symptoms. NOTE TO PCP: Neurology has recommended outpatient MRI C spine without contrast for R arm parasthesia. If this is negative, consider referral to Neuro for EMG/NCS studies of R arm. Vascular rerferral for annual surveillance of R ICA. Time Spent with Patient Time attestation: Total time spent providing and/or coordinating discharge services: Today I spent 50 minutes seeing the patient, discussing with the patient and his , reviewing Expanse and EPIC notes/diagnostics/labs, discussing the care plan with our care team that includes social work, PT/OT, pharmacy, RT, care home and documenting my impressions and plan in the medical record. Exam Narrative: Exam Narrative: General: No acute distress. Awake, alert, oriented x3. No pallor. No jaundice. While sitting on the side of the bed, subjective dizziness noted after about 1 minute. HEENT: Left carotid endarterectomy scar present. Oropharynx clear. Mucous membranes moist. Cardiovascular: Bradycardic, regular. No murmurs, gallops, or rubs. Respiratory: Clear to auscultation bilaterally. No wheezes or crackles. Abdomen: Bowel sounds present. Soft, nondistended, nontender. Extremities: No lower extremity edema. Neuro: Romberg is negative. Mild right lower facial droop at rest, able to smile without difficulty. Speech not affected. Cranial nerves 2-12 are intact. Extraocular movements are full. No nystagmus. No facial asymmetry. Tongue is midline. Peripheral vision and vision are grossly intact. Strength is 5/5 in all 4 extremities. DTRs intact and symmetric. Light touch sensation is intact in face body and extremities. Coordination is intact in upper and lower extremities. Const: Vital Signs, click to edit/add: Vital Signs - 24 hr 09/03/24 20:35 09/03/24 21:49 09/03/24 21:54 Temperature 98.8 F 97.8 F Pulse Rate Pulse Rate [Pulse Oximeter] 68 63 Pulse Rate [Right Pulse Oximeter] Pulse Rate [orthos tatic lying] Pulse Rate [orthos tatic sitting] Pulse Rate [orthos tatic standing] Respiratory Rate 18 18 Blood Pressure Blood Pressure [Le ft Upper Arm] 166/77 H 155/97 H Blood Pressure [Ri ght Arm] Blood Pressure [or thostatic lying Ri ght Arm] Blood Pressure [or thostatic sitting Right Arm] Blood Pressure [or thostatic standing Right Arm] Pulse Oximetry 98 96 Oxygen Delivery Me thod Room Air Room Air 09/03/24 22:31 09/03/24 22:45 09/03/24 23:00 Temperature Pulse Rate 61 61 61 Pulse Rate [Pulse Oximeter] Pulse Rate [Right Pulse Oximeter] Pulse Rate [orthos tatic lying] Pulse Rate [orthos tatic sitting] Pulse Rate [orthos tatic standing] Respiratory Rate 13 15 17 Blood Pressure 124/78 Blood Pressure [Le ft Upper Arm] Blood Pressure [Ri ght Arm] Blood Pressure [or thostatic lying Ri ght Arm] Blood Pressure [or thostatic sitting Right Arm] Blood Pressure [or thostatic standing Right Arm] Pulse Oximetry 95 96 94 Oxygen Delivery Me thod 09/03/24 23:09 09/03/24 23:32 09/04/24 00:02 Temperature 98.0 F Pulse Rate 60 61 62 Pulse Rate [Pulse Oximeter] Pulse Rate [Right Pulse Oximeter] Pulse Rate [orthos tatic lying] Pulse Rate [orthos tatic sitting] Pulse Rate [orthos tatic standing] Respiratory Rate 13 16 18 Blood Pressure 124/78 117/59 L 118/60 Blood Pressure [Le ft Upper Arm] Blood Pressure [Ri ght Arm] Blood Pressure [or thostatic lying Ri ght Arm] Blood Pressure [or thostatic sitting Right Arm] Blood Pressure [or thostatic standing Right Arm] Pulse Oximetry 95 95 93 Oxygen Delivery Nm thod 09/04/24 00:32 09/04/24 01:40 09/04/24 02:12 Temperature 98.5 F 98.5 F 98.2 F Pulse Rate 65 Pulse Rate [Pulse Oximeter] 63 Pulse Rate [Right Pulse Oximeter] 58 L Pulse Rate [orthos tatic lying] Pulse Rate [orthos tatic sitting] Pulse Rate [orthos tatic standing] Respiratory Rate 16 16 16 Blood Pressure 119/61 Blood Pressure [Le ft Upper Arm] 155/97 H Blood Pressure [Ri ght Arm] 151/80 H Blood Pressure [or thostatic lying Ri ght Arm] Blood Pressure [or thostatic sitting Right Arm] Blood Pressure [or thostatic standing Right Arm] Pulse Oximetry 95 95 Oxygen Delivery Nm thod Room Air 09/04/24 02:34 09/04/24 04:44 09/04/24 07:16 Temperature Pulse Rate 58 L 51 L Pulse Rate [Pulse Oximeter] Pulse Rate [Right Pulse Oximeter] Pulse Rate [orthos tatic lying] Pulse Rate [orthos tatic sitting] Pulse Rate [orthos tatic standing] Respiratory Rate Blood Pressure Blood Pressure [Le ft Upper Arm] Blood Pressure [Ri ght Arm] Blood Pressure [or thostatic lying Ri ght Arm] Blood Pressure [or thostatic sitting Right Arm] Blood Pressure [or thostatic standing Right Arm] Pulse Oximetry 97 Oxygen Delivery Nm thod 09/04/24 07:32 09/04/24 08:13 09/04/24 10:51 Temperature 97.6 F Pulse Rate Pulse Rate [Pulse Oximeter] Pulse Rate [Right Pulse Oximeter] 54 L Pulse Rate [orthos tatic lying] 60 Pulse Rate [orthos tatic sitting] 62 Pulse Rate [orthos tatic standing] 74 Respiratory Rate 16 16 Blood Pressure Blood Pressure [Le ft Upper Arm] Blood Pressure [Ri ght Arm] 154/78 H Blood Pressure [or thostatic lying Ri ght Arm] 122/69 Blood Pressure [or thostatic sitting Right Arm] 130/75 Blood Pressure [or thostatic standing Right Arm] 127/81 Pulse Oximetry 97 97 Oxygen Delivery Me thod Room Air Room Air DS: Data Data Completed and Pending Completed studies during hospitalization: 09/04/2024 EKG: Normal sinus rhythm, 61 beats per minute. Left axis deviation. Possible anterior infarct, age undetermined. 09/04/2024 Preliminary echocardiogram: LVF normal, 60-65%. RVF normal. Neg ative bubble study. Mild AI. AOR 4 cm. Arc 4.2 cm. IVC - NWV. Trace TR. Ordering Physician: Adelso Flood M.D. Date of Service: 09/03/24 Procedure(s): CT head/brain wo con Accession Number(s): [id number] cc: Britt Yanes M.D.; Adelso Flood M.D.~ For Patients: As a result of the Century Cures Act, medical imaging exams and procedure reports are released immediately into your electronic medical record. You may view this report before your referring provider. If you have questions, please contact your health care provider. INDICATION: Severe headache. TECHNIQUE: CT head without contrast. COMPARISON: June 08, 2020. FINDINGS: CSF spaces: Mild diffuse parenchymal volume loss. Brain parenchyma and extra-axial spaces: Moderate chronic white matter ischemic disease with chronic left frontoparietal infarction. The siddiqui-white differentiation is normal. No sign of mass, hemorrhage, or midline shift. No extra-axial fluid collection. Skull base and calvarium: Mild right maxillary sinus mucoperiosteal thickening. Otherwise, the visualized paranasal sinuses and mastoid air cells demonstrate no acute or significant findings. The visualized orbits are grossly unremarkable. No skull fractures. IMPRESSION: No acute intracranial abnormality on this noncontrast study. Moderate chronic white matter ischemic disease with chronic left frontoparietal infarction. Please note that all CT scans at this facility use dose modulation, iterative reconstruction, and/or weight-based dosing when appropriate to reduce radiation dose to as low as reasonably achievable. Dictated by Stephen Hull MD @ 09/03/2024 9:11:10 PM (Electronically Signed) Ordering Physician: Adelso Flood M.D. Date of Service: 09/03/24 Procedure(s): CT angio head Accession Number(s): [id number] cc: Britt Yanes M.D.; Adelso Flood M.D.~ For Patients: As a result of the Cures Act, medical imaging exams and procedure reports are released immediately into your electronic medical record. You may view this report before your referring provider. If you have questions, please contact your health care provider. INDICATION: Acute stroke. TECHNIQUE: CTA head with contrast bolus tracking, 3D angiographic rendering using maximum intensity projection (MIP) and images permanently archived. FINDINGS: There is scattered intracranial atherosclerotic disease. There is normal opacification of the intracranial vasculature. There is no large vessel occlusion. No aneurysm is identified. IMPRESSION: No acute intracranial abnormality at CTA. Please note that all CT scans at this facility use dose modulation, iterative reconstruction, and/or weight-based dosing when appropriate to reduce radiation dose to as low as reasonably achievable. Dictated by Obi Park MD @ 09/04/2024 12:31:59 PM (Electronically Signed) Ordering Physician: Adelso Flood M.D. Date of Service: 09/03/24 Procedure(s): CT angio neck Accession Number(s): [id number] cc: Britt Yanes M.D.; Adelso Flood M.D.~ For Patients: As a result of the Cures Act, medical imaging exams and procedure reports are released immediately into your electronic medical record. You may view this report before your referring provider. If you have questions, please contact your health care provider. INDICATION: Acute stroke. TECHNIQUE: CTA neck with contrast bolus tracking, 3D angiographic rendering using maximum intensity projection (MIP) and images permanently archived. FINDINGS: There is carotid atherosclerosis bilaterally. There is atherosclerotic plaque in the proximal right ICA resulting in a moderate stenosis, 65% by NASCET. There is no significant left carotid artery stenosis or dissection. There is no significant vertebral artery stenosis or dissection. The soft tissues of the neck are within normal limits. The cervical spine is in normal alignment. Degenerative changes are noted in the cervical spine. IMPRESSION: Moderate proximal right ICA stenosis, 65% by NASCET. Please note that all CT scans at this facility use dose modulation, iterative reconstruction, and/or weight-based dosing when appropriate to reduce radiation dose to as low as reasonably achievable. Dictated by Obi Park MD @ 09/04/2024 12:35:34 PM (Electronically Signed) Ordering Physician: Luisana Torres MD Date of Service: 09/04/24 Procedure(s): MR head/brain wo con Accession Number(s): [id number] cc: Britt Yanes M.D.; Luisana Torres MD~ For Patients: As a result of the Cures Act, medical imaging exams and procedure reports are released immediately into your electronic medical record. You may view this report before your referring provider. If you have questions, please contact your health care provider. Indication: 1 week numbness right lower arm and hand Technique: Noncontrast sagittal T1 weighted, axial FLAIR, axial T2 weighted, and axial diffusion weighted sequences are provided. Comparison: 06/08/2020 Findings: No mass effect or midline shift. No hydrocephalus. There is no evidence of diffusion restriction to suggest acute ischemia. Moderate region of confluent T2 prolongation in the left frontal and parietal lobes in the watershed territory. Few chronic ischemic infarcts in the left frontal lobe. Mild parenchymal volume loss. Multiple scattered foci of T2 prolongation in the supratentorial white matter of both cerebral hemispheres. No suspicious extra-axial collection or acute intracranial hemorrhage. Mild FLAIR signal hyperintensities in the brainstem. Expected intracranial vascular flow voids are preserved. Mild mastoid effusions. Rightward deviation of the nasal septum with septal spur. Mild polypoid mucosal thickening in the right maxillary sinus. The calvarial bone marrow signal is within normal limits. The scalp and soft tissues are grossly normal. No pathologic susceptibility artifacts. Impression: 1. No acute intracranial abnormality. No significant changes compared to the prior exam. 2. Stable confluent region of FLAIR signal hyperintensity in the left frontal and parietal lobes involving the left watershed territories as well as chronic ischemic infarcts in the left frontal lobe are unchanged. 3. Chronic small-vessel ischemic changes in the supratentorial white matter and brainstem are unchanged. Dictated by Trevin Dalal MD @ 09/04/2024 9:21:43 AM (Electronically Signed) Labs on day of discharge: Labs from last 24 hours 09/04/24 09/03/24 09/03/24 05:35 22:03 21:23 WBC 3.24 L RBC 4.31 Hgb 13.2 L Hct 38.7 MCV 90 MCH 31 MCHC 34 RDW Coeff of Yudi 14.5 Plt Count 87 L Neut % (Auto) 50.3 Lymph % (Auto) 43.5 Mason % (Auto) 4.3 Eos % (Auto) 1.9 Baso % (Auto) 0.0 Neut # (Auto) 1.60 L Lymph # (Auto) 1.40 Mason # (Auto) 0.10 Eos # (Auto) 0.10 Baso # (Auto) 0.00 Abs Immat Gran (auto) 0.00 Imm/Tot Granulo (auto) 0.0 INR Sodium 138 Potassium 4.4 Chloride 106 Carbon Dioxide 24 Anion Gap 8 BUN 22 Creatinine 1.1 Estimated Creat Clear 64.35 Estimated GFR 69 Glucose 108 Hemoglobin A1c 5.6 Calcium 9.0 Total Bilirubin 1.1 AST 43 H ALT 47 Alkaline Phosphatase 83 Total Protein 6.8 Albumin 4.4 Triglycerides 115 Cholesterol 128 LDL Cholesterol, Calc 74 HDL Cholesterol 31 L Vitamin B12 258 TSH 2.840 POC Creatinine 1.3 POC Troponin I 0.00 L 09/03/24 20:40 WBC 3.69 L RBC 4.25 L Hgb 13.2 L Hct 38.2 MCV 90 MCH 31 MCHC 35 RDW Coeff of Yudi 14.7 Plt Count 99 L Neut % (Auto) 55.0 Lymph % (Auto) 40.1 Mason % (Auto) 3.3 Eos % (Auto) 1.6 Baso % (Auto) 0.0 Neut # (Auto) 2.00 Lymph # (Auto) 1.50 Mason # (Auto) 0.10 Eos # (Auto) 0.10 Baso # (Auto) 0.00 Abs Immat Gran (auto) 0.00 Imm/Tot Granulo (auto) 0.0 INR 0.97 Sodium 137 Potassium 4.5 Chloride 107 Carbon Dioxide 22 Anion Gap 8 BUN 22 Creatinine 1.2 Estimated Creat Clear 58.99 Estimated GFR 62 Glucose 94 Hemoglobin A1c Calcium 9.2 Total Bilirubin AST ALT Alkaline Phosphatase Total Protein Albumin Triglycerides Cholesterol LDL Cholesterol, Calc HDL Cholesterol Vitamin B12 TSH POC Creatinine POC Troponin I Discharge Plan Discharge Disposition: Home, Self-Care Date of Admission: 09/04/24 01:06 Attending Provider on Discharge: Kyung Nevarez Primary Care Provider: Britt Yanes Condition: Improved Anticipated Discharge Date/Time: 09/04/24 10:34 Discharge Medications: Continued multivitamin Tablet 1 tab PO QAM omega-3 fatty acids 1,000 mg capsule 1,000 mg PO DAILY clopidogrel 75 mg tablet 75 mg PO DAILY omeprazole 20 mg capsule,delayed release(DR/EC) 20 mg PO DAILY rosuvastatin 40 mg tablet 40 mg PO DAILY aspirin 81 mg tablet,delayed release (DR/EC) 81 mg PO DAILY Discontinued sertraline 100 mg tablet 100 mg PO DAILY Discharge Orders: Discharge Order (Routine); Ordered 09/04/24 Ordered By: Syeda Paredes Patient Education: Paresthesia (GEN) Additional Instructions: F/u with [facility] in 5-7 days with CBC. Zio patch on discharge. Outpatient OT evaluate and treat. Stop your sertraline as your platelets are low. Your PCP can recheck these and address medications Will need outpatient MRI C-Spine - this can be ordered by your PCP Activity Level: No Restrictions Discharge Diet: Regular Follow Up Appointments: Britt Yanes MD [Primary Care Provider, Internal Medicine] - 09/08/24 2:30 pm Referral Note: [facility] for hospital follow-up, and CBC, MRI CSpine. [facility] Info Instructions
--- NOTE | 2024-09-04 13:59 | PC.NURSE ---
Shift Summary: Patient pleasant and cooperative. Up independently/SBA as needed. Vitals stable and WNL. Neurology consult done this afternoon. Patient had episode of dizziness, orthostatic BP done and reported to MD. Low platelets, MD ordered to hold plavix today. Patient has denied numbness in arm/hand throughout shift, neuros appear to be baseline.
[2024-09-04] MEDS: ACETAMINOPHEN 325 MG TABLET PO (14:29)
--- NOTE | 2024-09-04 15:06 | PC.NURSE ---
Discharge: Placed zio patch, taught patient and how to get sivan and document symptoms via sivan or written in book, informed to click zio patch button when having symptom and what symptoms to document. Discussed how to remove patch after 14days and to return in purple box it comes in with the booklet. IV removed with catheter intact. Patient d/c @ 1500, ambulated self to car with .
== END 2024-09-04 15:00 | disposition home or self-care (01) ==
LOC: ED 09-04 00:42 → MEDSURG 09-04 01:07
PROVIDERS: Hospitalist; Admitting Provider Obstetrics & Gynecology; Emergency Provider Emergency Medicine; PCP Internal Medicine; Visit Provider Obstetrics & Gynecology
DX: R20.2 Paresthesia of skin (principal); I95.1 Orthostatic hypotension; D69.6 Thrombocytopenia, unspecified; G47.33 Obstructive sleep apnea (adult) (pediatric); R26.89 Other abnormalities of gait and mobility; F32.A Depression, unspecified; E78.5 Hyperlipidemia, unspecified; I77.810 Thoracic aortic ectasia; Z86.73 Personal history of transient ischemic attack (TIA), and cerebral infarction without residual deficits
CPT/HCPCS: 36415; 70450; 70496; 70498; 70551; 80048; 80053; 80061; 82565; 82607; 83036; 84443; 84484; 85025; 85610; 93246; 93306; 94761; 96374; 97112; 97161; 97165; 99283; 99285; A9270; G0378; Q9967

== ENCOUNTER 2024-09-24 08:36 | Outpatient (CLI) | payer MEDICARE, SELFPAY ==
--- NOTE | 2024-09-24 09:47 | P.ANES_ITS ---
Anesthesia Charges Start Date/Time Anesthesia Start Date: 09/24/24 Anesthesia Start Time: 09:15 Stop Date/Time Anesthesia Stop Date: 09/24/24 Anesthesia Stop Time: 09:44 Summary Extremes of Age - Over 70 or under 1: COLD ROLLING COORDINATOR Coding CPT Codes CPT Codes: ANES LWR INTST NDSC NOS - 68836 ([id number]) P3 - PATIENT W/SEVERE SYS DISEASE, QK - ASSOCIATE STORE DIRECTOR 2-4 CNCRNT ANES PROC, QX - COLD ROLLING COORDINATOR SVC W/ MD MED DIRECTION Additional Codes: Summary - Extremes of Age - Over 70 or under 1: COLD ROLLING COORDINATOR ([id number])
--- NOTE | 2024-09-24 09:47 | W.ANESCHARGE ---
Anesthesia Charges Start Date/Time Anesthesia Start Date: 09/24/24 Anesthesia Start Time: 09:15 Stop Date/Time Anesthesia Stop Date: 09/24/24 Anesthesia Stop Time: 09:44 Summary Extremes of Age - Over 70 or under 1: MATCHER OFFBEARER Coding CPT Codes CPT Codes: ANES LWR INTST NDSC NOS - 92338 ([id number]) P3 - PATIENT W/SEVERE SYS DISEASE, QK - SOLAR ELECTRIC/PHOTOVOLTAIC INSTALLER 2-4 CNCRNT ANES PROC, QX - MATCHER OFFBEARER SVC W/ MD MED DIRECTION Additional Codes: Summary - Extremes of Age - Over 70 or under 1: MATCHER OFFBEARER ([id number])
--- NOTE | 2024-09-24 10:00 | P.ANES_ITS ---
Anesthesia Charges Start Date/Time Anesthesia Start Date: 09/24/24 Anesthesia Start Time: 09:15 Stop Date/Time Anesthesia Stop Date: 09/24/24 Anesthesia Stop Time: 09:44 Summary Extremes of Age - Over 70 or under 1: MDA Coding CPT Codes CPT Codes: ANES LWR INTST NDSC NOS - 14527 ([id number]) P3 - PATIENT W/SEVERE SYS DISEASE, QK - RESIDENCE LIFE DIRECTOR 2-4 CNCRNT ANES PROC, QX - CLIENT INSIGHTS CONSULTANT SVC W/ MD MED DIRECTION Additional Codes: Summary - Extremes of Age - Over 70 or under 1: MDA ([id number])
--- NOTE | 2024-09-24 10:00 | W.ANESCHARGE ---
Anesthesia Charges Start Date/Time Anesthesia Start Date: 09/24/24 Anesthesia Start Time: 09:15 Stop Date/Time Anesthesia Stop Date: 09/24/24 Anesthesia Stop Time: 09:44 Summary Extremes of Age - Over 70 or under 1: MDA Coding CPT Codes CPT Codes: ANES LWR INTST NDSC NOS - 08567 ([id number]) P3 - PATIENT W/SEVERE SYS DISEASE, QK - DISABILITY AIDE 2-4 CNCRNT ANES PROC, QX - COMMUNITY OUTREACH WORKER SVC W/ MD MED DIRECTION Additional Codes: Summary - Extremes of Age - Over 70 or under 1: MDA ([id number])
== END 2024-09-24 08:37 | disposition home or self-care (01) ==
LOC: OP CLINIC 08:37
PROVIDERS: PCP Internal Medicine; Visit Provider Internal Medicine
DX: Z12.11 Encounter for screening for malignant neoplasm of colon (principal); D12.3 Benign neoplasm of transverse colon; D12.5 Benign neoplasm of sigmoid colon; K57.30 Diverticulosis of large intestine without perforation or abscess without bleeding; Z86.0100 Personal history of colon polyps, unspecified
CPT/HCPCS: 00811; 00812; 45380; 88305; 99100; J2704

== ENCOUNTER 2024-11-18 20:35 | Outpatient (CLI) | payer MEDICARE, SELFPAY | END 2024-11-18 20:36 | disposition home or self-care (01) | PROVIDERS: PCP Internal Medicine; Visit Provider Internal Medicine | DX: G47.33 Obstructive sleep apnea (adult) (pediatric) (principal) | CPT/HCPCS: 95811 ==

== ENCOUNTER 2024-11-25 10:12 | Outpatient (CLI) | payer MEDICARE, SELFPAY ==
--- NOTE | 2024-11-25 10:15 | CRLHL7_ITS ---
For Patients: As a result of the Century Cures Act, medical imaging exams and procedure reports are released immediately into your electronic medical record. You may view this report before your referring provider. If you have questions, please contact your health care provider. CLINICAL HISTORY: Pancytopenia COMPARISON: CT 01/03/2022 TECHNIQUE: Real time siddiqui scale imaging and color Doppler analysis was performed of the abdomen. FINDINGS: Liver measures 18.1 cm. Liver echotexture is diffusely increased. Calcified splenic granulomas are again noted. The spleen measures 12.9 cm. The pancreas is not visualized due to overlying bowel gas. The proximal abdominal aorta and IVC appear normal. There is no evidence of ascites. Echogenic focus associated with the gallbladder wall measures 2 x 2 x 3 millimeters. The gallbladder wall measures 2 mm in thickness. The common bile duct measures 2 mm in size within the jose g hepatis. The kidneys appear symmetric. The right kidney measures 12.8 cm in length and the left kidney measures 13.2 cm. There is no evidence of a renal calculus or hydronephrosis. IMPRESSION: Mild hepatosplenomegaly. Chronic hepatic steatosis and granulomatous change to the spleen. 3 millimeter gallbladder polyp. Dictated by Trevin Luz MD @ 11/25/2024 12:02:01 PM (Electronically Signed)
== END 2024-11-25 10:13 | disposition home or self-care (01) ==
LOC: US 10:19
PROVIDERS: PCP Internal Medicine; Visit Provider Internal Medicine Hematology & Oncology
DX: D61.818 Other pancytopenia (principal); R16.2 Hepatomegaly with splenomegaly, not elsewhere classified; K76.0 Fatty (change of) liver, not elsewhere classified; K82.4 Cholesterolosis of gallbladder
CPT/HCPCS: 76700

== ENCOUNTER 2024-12-23 10:06 | Outpatient (CLI) | payer MEDICARE, SELFPAY ==
--- NOTE | 2024-12-23 10:00 | CRLHL7_ITS ---
For Patients: As a result of the Century Cures Act, medical imaging exams and procedure reports are released immediately into your electronic medical record. You may view this report before your referring provider. If you have questions, please contact your health care provider. INDICATION: Pancytopenia and hepatosplenomegaly TECHNIQUE: CT chest, abdomen and pelvis acquired with 114 mL Isovue 370 IV contrast. COMPARISON: 11/25/2024 abdominal ultrasound, 01/03/[address] FINDINGS: CHEST: Cardiovascular structures: Heart size is normal. Thoracic aorta and main pulmonary artery are normal in caliber. Coronary artery calcification. Mediastinum and david: No mass or adenopathy. Lungs and pleura: Benign calcified granuloma in the right lower lobe. Mucus in the tracheobronchial tree. Chest wall and axilla: No mass or adenopathy. Bones: No suspicious bone lesions. Unremarkable for age. ABDOMEN AND PELVIS: Liver: Steatosis. Gallbladder and bile ducts: Unremarkable. Pancreas: Unremarkable. Spleen: Calcified granulomas. Otherwise normal CT appearance. Adrenal glands: Unremarkable. Kidneys: Punctate nonobstructing stone in the left kidney. GI tract: Colonic diverticulosis. Vascular structures: Unremarkable. Lymph nodes: Unremarkable. Miscellaneous: Right inguinal hernia containing a loop of unobstructed small bowel. Pelvic Organs: Unremarkable. Bones: Right hip arthroplasty. IMPRESSION: 1. Hepatic steatosis. 2. Minimal left nephrolithiasis. 3. Right inguinal hernia containing a loop of unobstructed small bowel. Please note that all CT scans at this facility use dose modulation, iterative reconstruction, and/or weight-based dosing when appropriate to reduce radiation dose to as low as reasonably achievable. Dictated by oYung Lacey MD @ 12/23/2024 3:12:14 PM (Electronically Signed)
[2024-12-23 10:42] LABS: Creatinine* 0.9 mg/dL (0.5-1.5); Estimated Glomerular Filt Rate 87 ml/min
== END 2024-12-23 10:07 | disposition home or self-care (01) ==
LOC: CT 10:08
PROVIDERS: PCP Internal Medicine; Visit Provider Internal Medicine Hematology & Oncology
DX: D61.818 Other pancytopenia (principal); K76.0 Fatty (change of) liver, not elsewhere classified; N20.0 Calculus of kidney; K40.90 Unilateral inguinal hernia, without obstruction or gangrene, not specified as recurrent
CPT/HCPCS: 36415; 71260; 74177; 82565; Q9967

== ENCOUNTER 2025-02-09 07:42 | Day surgery (SDC) | payer MEDICARE, SELFPAY ==
[2025-02-09] VITALS (13 sets, daily range): BP systolic 100–176; BP diastolic 41–108; PULSE 67–79; RESP 14–18; TEMP 36.3–36.8; O2SAT 92–96; BMI 31.0
[2025-02-09] MEDS: SODIUM CHLORIDE 0.9 % (FLUSH) 10 ML SYRINGE IVF (08:10)
[2025-02-09] MEDS: LACTATED RINGERS 1000 ML 1,000 ML 100 ML IV ×2 (08:10→10:42)
--- NOTE | 2025-02-09 08:39 | W.PM.H&PU ---
History & Physical Update History & Physical Update H&P Reviewed and patient assessed: No changes noted
--- NOTE | 2025-02-09 09:30 | P.ANES_ITS ---
Anesthesia Charges Start Date/Time Anesthesia Start Date: 02/09/25 Anesthesia Start Time: 09:05 Stop Date/Time Anesthesia Stop Date: 02/09/25 Anesthesia Stop Time: 11:49 Summary Extremes of Age - Over 70 or under 1: MDA Coding CPT Codes CPT Codes: ANESTH SURG LOWER ABDOMEN - 89173 ([id number]) P3 - PATIENT W/SEVERE SYS DISEASE, QK - PIPE ORGAN TECHNICIAN 2-4 CNCRNT ANES PROC, QX - POLYTECHNIC TEACHER SVC W/ MD MED DIRECTION Additional Codes: Summary - Extremes of Age - Over 70 or under 1: MDA ([id number])
--- NOTE | 2025-02-09 09:30 | W.ANESCHARGE ---
Anesthesia Charges Start Date/Time Anesthesia Start Date: 02/09/25 Anesthesia Start Time: 09:05 Stop Date/Time Anesthesia Stop Date: 02/09/25 Anesthesia Stop Time: 11:49 Summary Extremes of Age - Over 70 or under 1: MDA Coding CPT Codes CPT Codes: ANESTH SURG LOWER ABDOMEN - 96196 ([id number]) P3 - PATIENT W/SEVERE SYS DISEASE, QK - AMMUNITION COMPONENTS INSPECTOR 2-4 CNCRNT ANES PROC, QX - CODING ASSISTANT SVC W/ MD MED DIRECTION Additional Codes: Summary - Extremes of Age - Over 70 or under 1: MDA ([id number])
[2025-02-09] MEDS: BUPIVACAINE 0.25% 30 ML INJECTION (10:55)
--- NOTE | 2025-02-09 11:12 | PM.GSPRC ---
Operative Note Date of procedure: 02/09/25 Pre-op diagnosis: 1. Right inguinal hernia 2. Umbilical hernia Post-op diagnosis: Same Type of Procedure: 1. Laparoscopic right inguinal hernia repair 2. Open umbilical hernia repair Indications: Patient is a 79-year-old male who presented to clinic with a symptomatic right inguinal hernia. He also had a small umbilical hernia on examination that he request to be repaired at the same time. Risks and benefits of operative intervention were discussed at length with the patient. Risks included but was not limited to: Bleeding, infection, risk of damage to surrounding structures, possible need for additional procedures, possible need to convert to an open operation, risk of recurrence and postoperative complications such as pneumonia, pulmonary emboli or MD. All questions and concerns were addressed with the patient agreeing to proceed. Procedure Description: After discussing the risks and benefits of the procedure, the patient signed informed consent.? The operative site was marked and the patient was brought to the operating room and placed on the operating table in supine position.? Care was taken to pad the patient's pressure points.?? The patient was then intubated by anesthesia.?? The operative site was then prepped and draped in the usual sterile fashion.? A time-out was then performed. A curvilinear incision was made below the umbilicus. Dissection was carried down to subcutaneous tissue until the anterior rectus fascia was encountered. This was incised off the midline. The rectus muscles were then retracted exposing the posterior fascia. A space maker port with a dissecting balloon was then introduced. The preperitoneal space was inflated under direct vision. The balloon was then removed and the preperitoneal space insufflated. A 10 mm 30 degree scope was then advanced and the area was surveyed for bleeding. Dissection began on the right side. Alex's ligament and the pubic bone was exposed medially. Following this dissection was carried out laterally. A indirect defect was noted. The sac was dissected free from the cord structures using a combination of sharp and blunt dissection. Once the sac was completely reduced, a piece of 3D Bard mesh for the appropriate side was placed into the abdomen. This was positioned to the anterior abdominal wall, ensuring that the peritoneum was placed on top of the mesh. A Tacker was used to attach the mesh medially at Alex's ligament. Additional local anesthetic was placed into the extraperitoneal space. Once this was completed the sac was placed on top of the mesh and the preperitoneal space desufflated under direct vision. The ports were removed. The fascia from the infraumbilical port was closed with 0 Vicryl. Attention was then directed to the small umbilical hernia. Using the infraumbilical port site dissection was carried down to the umbilical stalk. A small hernia sac was identified and dissected out circumferentially. The fascial edges were cleared. The hernia was 1 cm in size and so the decision was made to close the defect primarily. Using 0 Nurolon interrupted sutures and a [id number] technique the defect was closed. Local anesthetic was injected into the fascia, skin and subcutaneous tissues. The umbilicus was reapproximated to the fascia. The skin was then closed with running absorbable suture. All port sites were closed. Sterile dressings were then applied. The scrotum was examined to ensure that both testicles were down. Instrument sponge and needle counts were correct at the end of the case. The patient was then woken and transported to the recovery area in stable condition. ? The patient tolerated the procedure well. Findings: Right indirect inguinal hernia. Small umbilical hernia. Implants: Large Bard 3D mesh, right side Anesthesia: GETA Surgeon: Zara Cohen MD Estimated blood loss (mL): 5 Condition: stable Disposition: PACU
--- NOTE | 2025-02-09 11:51 | P.ANES_ITS ---
Anesthesia Charges Start Date/Time Anesthesia Start Date: 02/09/25 Anesthesia Start Time: 09:05 Stop Date/Time Anesthesia Stop Date: 02/09/25 Anesthesia Stop Time: 11:49 Coding CPT Codes CPT Codes: ANESTH REPAIR OF HERNIA - 01632 ([id number]) P3 - PATIENT W/SEVERE SYS DISEASE, QK - BROILER MANAGER 2-4 CNCRNT ANES PROC, QX - EYEWEAR MANUFACTURING SUPERVISOR SVC W/ MD MED DIRECTION
--- NOTE | 2025-02-09 11:51 | W.ANESCHARGE ---
Anesthesia Charges Start Date/Time Anesthesia Start Date: 02/09/25 Anesthesia Start Time: 09:05 Stop Date/Time Anesthesia Stop Date: 02/09/25 Anesthesia Stop Time: 11:49 Coding CPT Codes CPT Codes: ANESTH REPAIR OF HERNIA - 22347 ([id number]) P3 - PATIENT W/SEVERE SYS DISEASE, QK - PICKLING SOLUTION MAKER 2-4 CNCRNT ANES PROC, QX - INFORMATION MANAGEMENT SPECIALIST SVC W/ MD MED DIRECTION
[2025-02-09] MEDS: HYDROCODONE-ACETAMIN 5-325 MG 1 TAB PO (12:46)
== END 2025-02-09 13:30 | disposition home or self-care (01) ==
PROVIDERS: PCP Internal Medicine; Visit Provider Surgery
PROC: (CPT 49650; principal; 2025-02-09 09:00)
DX: K40.90 Unilateral inguinal hernia, without obstruction or gangrene, not specified as recurrent (principal); K42.9 Umbilical hernia without obstruction or gangrene
CPT/HCPCS: 49650; 49591; 00830; 00840; 99100; A9270; C1781; J0665; J0690; J1100; J2312; J2405; J2704; J3010; J3490; J7120